=== PATIENT | female | born 1985 | race Caucasian/White ===

== ENCOUNTER → 2016-12-04 | Outpatient (CLI) | payer OTHER ==
--- NOTE | 2016-12-04 09:15 | US ---
EXAMINATION TYPE: US OB <=14 wks transvag DATE OF EXAM: 12/04/2016 8:15 AM COMPARISON: NONE CLINICAL HISTORY: US. Spotting, cramping, 2009 EXAM PERFORMED: Transvaginal (TV) and Transabdominal (TA) EXAM MEASUREMENTS: GESTATIONAL AGE / DATING Physician Established: not established Dates by LMP: (7 weeks/6 days) EDC: 07/17/17 Dates by First Scan: no prior Dates by Current Scan : (8 weeks/1 days) EDC: 07/15/17 MATERNAL ANATOMY Uterus: 10.7 x 6.3 x 7.8cm Right Ovary: 3.5 x 1.3 x 1.6cm Left Ovary: 3.8 x 1.9 x 2.0cm Post CDS / Adnexa: WNL Presence of free fluid: NO Presence of corpus luteal cyst: yes, hypoechoic area left ovary = 1.7 x 2.0 x 1.6cm Presence of subchorionic bleed: yes, inferior to gestational sac = 1.9 x 1.0 x 1.7cm GESTATION / SURVEY CRL: 1.6cm (8 weeks/1 days) Yolk Sac (normal less than 6mm): 0.3cm Heart Rate: 163 bpm Rhythm: Normal IUP: Viable IUP Date of LMP: 10/10/16 IMPRESSION: Single viable IUP 8wks/1day with [place] of 07/15/17. Corpus luteum left ovary. Small subch orionic bleed
== END | disposition home or self-care (01) ==
LOC: RADUSWWP 07:21
PROVIDERS: ATTEND Obstetrics & Gynecology
DX: O20.8 Other hemorrhage in early pregnancy (principal); Z3A.08 8 weeks gestation of pregnancy
CPT/HCPCS: 76801; 76817

== ENCOUNTER → 2017-01-08 | Outpatient (CLI) | payer OTHER ==
[2017-01-08 17:19] LABS: Basophils % (A) 0 %; CHCM 32.4; Eosinophils # (A) 0.1 k/uL (0-0.7); Eosinophils % (A) 1 %; HCT 40.5 % (34.0-46.0); HDW 2.59; HGB 12.9 gm/dL (11.4-16.0); Luc % (Auto) 1; Lymphocytes % (A) 26 %; MCH 28.6 pg (25.0-35.0); MCHC 31.9 g/dL (31.0-37.0); MCV 89.7 fL (80.0-100.0); Mean Platelet Volume 6.9; Monocytes # (A) 0.2 k/uL (0-1.0); Monocytes % (A) 3 %; Neutrophils # (A) 5.1 k/uL (1.3-7.7); Neutrophils % (A) 68 %; RBC 4.52 m/uL (3.80-5.40); WBC 7.5 k/uL (3.8-10.6); WBC (Perox) 8.17
[2017-01-08 18:09] LABS: Hepatitis B Surface Ag Index 0.07
[2017-01-08 18:48] LABS: HCG,Quantitative Serum 67152.7 mIU/mL
[2017-01-09 06:37] LABS: HIV-1/HIV-2 Ab Screen NONREAC (NON REAC)
== END | disposition home or self-care (01) ==
LOC: LABWHC1 16:37
PROVIDERS: ATTEND Obstetrics & Gynecology
DX: Z34.80 Encounter for supervision of other normal pregnancy, unspecified trimester (principal); Z3A.00 Weeks of gestation of pregnancy not specified
CPT/HCPCS: 36415; 81220; 84439; 84443; 84702; 85025; 86762; 86780; 86850; 86900; 86901; 87340; 87389

== ENCOUNTER 2017-03-26 16:59 | Emergency (ER) | payer OTHER ==
[2017-03-26 17:10] VITALS: RESP 20
[2017-03-26] MEDS ORDERED: ACETAMINOPHEN TAB 500 MG TAB PO STA (17:21)
--- NOTE | 2017-03-26 17:24 | ED ---
Fall HPI - General Chief Complaint: Fall Stated Complaint: Fall 24 weeks Time Seen by Provider: 03/26/17 17:15 Source: patient Mode of arrival: wheelchair Limitations: no limitations - History of Present Illness Initial Comments: 31-year-old female presents emergency Department chief complaint fall down 8 steps. Patient states she slipped top step fell down sliding on her back and then fell forward. She did strike her head there was no LOC. Patient has a minimal headache but does complain of neck, back pain and right forearm pain. Patient states that she is approximately 24 weeks denies any abdominal pain denies vaginal bleeding or vaginal discharge. Patient states she was able to ambulate states that she is in extreme pain in her low back. Patient states her [employer] is Dr. Rojas. Patient denies any nausea, vomiting, blurred vision, focal weakness. - Related Data Home Medications Medication Instructions Recorded Confirmed Pediatric Multivit Comb No.144 2 tab PO DAILY 03/26/17 03/26/17 [Children's Chewable Vitamin] Allergies Allergy/AdvReac Type Severity Reaction Status Date / Time No Known Allergies Allergy Verified 03/26/17 17:15 Review of Systems ROS Statement: Those systems with pertinent positive or pertinent negative responses have been documented in the HPI. ROS Other: All systems not noted in ROS Statement are negative. Past Medical History Additional Past Medical History / Comment(s): kidney stones with stent, menorrhagia. History of Any Multi-Drug Resistant Organisms: None Reported Past Surgical History: Section, Tonsillectomy Additional Past Surgical History / Comment(s): 2 weeks ago had ureter stent place at [facility]. Past Anesthesia/Blood Transfusion Reactions: No Reported Reaction Past Psychological History: Anxiety Additional Psychological History / Comment(s): Pt currently lives with her boyfriend. She is independent. Smoking Status: Never smoker Past Alcohol Use History: None Reported Past Drug Use History: None Reported - Past Family History Mother Additional Family Medical History / Comment(s): hypotension, severe anxiety and severe depression, vertigo. CAD runs in mother's family Father Additional Family Medical History / Comment(s): "has a bad heart", back problems. CAD runs in father's family General Exam Limitations: no limitations General appearance: alert, in no apparent distress Head exam: Present: atraumatic, normocephalic, normal inspection Eye exam: Present: normal appearance, PERRL, EOMI. Absent: scleral icterus, conjunctival injection, periorbital swelling ENT exam: Present: normal oropharynx, mucous membranes moist Neck exam: Present: normal inspection, tenderness (Mild tenderness on the right paraspinal no vertebral tenderness. No step-off deformity), full ROM. Absent: meningismus, lymphadenopathy Respiratory exam: Present: normal lung sounds bilaterally. Absent: respiratory distress, wheezes, rales, rhonchi, stridor, chest wall tenderness Cardiovascular Exam: Present: regular rate, normal rhythm, normal heart sounds. Absent: systolic murmur, diastolic murmur, rubs, gallop, clicks GI/Abdominal exam: Present: soft, normal bowel sounds. Absent: distended, tenderness, guarding, rebound, rigid Extremities exam: Present: other (Right forearm there is some ecchymosis noted, small superficial abrasion there is tenderness the right forearm left upper extremity within normal limits, bilateral lower extremities within normal limits ) Back exam: Present: full ROM, tenderness (Tenderness to the lumbar spine, left low back region), paraspinal tenderness, vertebral tenderness Neurological exam: Present: alert, oriented X3, CN II-XII intact, reflexes normal. Absent: motor sensory deficit Skin exam: Present: warm, dry, intact, normal color. Absent: rash Course Vital Signs 03/26/17 17:08 Temperature 97.6 F Pulse Rate 93 Respiratory 20 Rate Blood Pressure 114/59 O2 Sat by Pulse 100 Oximetry Medical Decision Making - Medical Decision Making 31-year-old female presented emergency department for fall. Patient does have low back tenderness, rebound tenderness and neck pain. Patient was offered x- rays and states that she wants x-rays. She understands the risk of radiation with being . Patient also given Tylenol at this time. X-rays show no acute fracture. Patient will be discharged emergency Department sent up to labor and delivery for monitoring. Disposition Clinical Impression: Fall, Back pain, Neck pain, Contusion of right forearm Disposition: HOME SELF-CARE Condition: Stable Instructions: Contusion in Adults (ED) Additional Instructions: Please return to the Emergency Department if symptoms worsen or any other concerns. Time of Disposition: 18:27
--- NOTE | 2017-03-26 18:22 | XR ---
EXAMINATION TYPE: XR cervical spine comp DATE OF EXAM: 03/26/2017 5:44 PM COMPARISON: NONE HISTORY: Pain after trauma TECHNIQUE: 5 views FINDINGS: The bones and joints and soft tissues are unremarkable for acute findings. IMPRESSION: Negative for fracture or malalignment.
--- NOTE | 2017-03-26 18:24 | XR ---
EXAMINATION TYPE: XR forearm RT DATE OF EXAM: 03/26/2017 5:44 PM COMPARISON: NONE HISTORY: Pain after trauma TECHNIQUE: 2 views FINDINGS: The bones and joints and soft tissues are unremarkable. Imaging obtained from the elbow to the wrist. IMPRESSION: No acute process.
--- NOTE | 2017-03-26 18:25 | XR ---
EXAMINATION TYPE: XR lumbar spine 2 or 3V DATE OF EXAM: 03/26/2017 5:44 PM COMPARISON: NONE HISTORY: Pain after trauma. Gravid state. TECHNIQUE: AP and lateral views FINDINGS: Negative for fracture or malalignment. IMPRESSION: No acute process.
[2017-03-26 18:41] VITALS: BP 123/69; PULSE 78; TEMP 98
== END 2017-03-26 18:41 | disposition home or self-care (01) ==
LOC: EC 16:59
DX: O9A.212 Injury, poisoning and certain other consequences of external causes complicating pregnancy, second trimester (principal); S50.11XA Contusion of right forearm, initial encounter; M54.2 Cervicalgia; M54.5 Low back pain; R51 Headache; Z79.899 Other long term (current) drug therapy; Z3A.24 24 weeks gestation of pregnancy; W10.9XXA Fall (on) (from) unspecified stairs and steps, initial encounter
CPT/HCPCS: 72050; 72100; 99283

== ENCOUNTER → 2017-05-16 | Outpatient (CLI) | payer OTHER ==
--- NOTE | 2017-05-16 17:21 | US ---
EXAMINATION TYPE: US OB >= 14 wk fetus DATE OF EXAM: 05/16/2017 COMPARISON: US CLINICAL HISTORY: O09.212 Placenta LocationPlacenta location TECHNIQUE: Transabdominal (TA) GESTATIONAL AGE / DATING Physician Established: (30 weeks/5 days) EDC: 07/20/2017 Dates by LMP: (31 weeks/1 days) EDC: 07/17/2017 Dates by First Scan: (31 weeks/3 days) EDC: 07/15/2017 Dates by Current Scan: (29 weeks/4 days) EDC: 07/28/2017 SURVEY IUP: Single PLACENTA: Anterior, 1.9cm hypoechoic non vascular area within lower portion of placenta PREVIA: No Previa SHREYAS: 11.5 cm Normal CERVICAL LENGTH (transabdominal: norm > 3.0cm): 3.7 cm BIOMETRY PRESENTATION: Vertex BPD: 7.2 cm 28 weeks / 5 days HC: 26.9 cm 29 weeks / 2 days AC: 26.1 cm 30 weeks / 2 days FL: 5.9 cm 30 weeks / 5 days ESTIMATED WEIGHT IN GRAMS: 1524 grams ESTIMATED WEIGHT IN LBS/OZS: 3 lbs. 6 oz. WEIGHT PERCENTAGE BASED ON ESTABLISHED DATES: 21% HC/AC: 1.03 Normal FL/AC: 22.60 Normal HEART RATE: 132 bpm RHYTHM: Normal Viable single IUP measuring 29 weeks 4 days with a heart rate of 132bpm and an estimated delivery irina e of 07/28/2017, placenta: no previa, 1.9cm hypoechoic non vascular area within lower portion of plac enta IMPRESSION: PLACENTA IS LOCATED ANTERIORLY WITHOUT EVIDENCE OF PLACENTA PREVIA. LESION IN THE LOWER PORTION OF TH E PLACENTA MAY REPRESENT A THROMBOSED VENOUS MADDEN OR VERY SLOW FLOWING BLOOD IS INTRAVENOUSLY.
== END | disposition home or self-care (01) ==
LOC: RADUSWWP 15:35
PROVIDERS: ATTEND Obstetrics & Gynecology
DX: O09.213 Supervision of pregnancy with history of pre-term labor, third trimester (principal); O36.5130 Maternal care for known or suspected placental insufficiency, third trimester, not applicable or unspecified; Z3A.30 30 weeks gestation of pregnancy
CPT/HCPCS: 76805

== ENCOUNTER 2017-05-28 13:11 | Outpatient (CLI) | payer OTHER ==
[2017-05-28 14:20] VITALS: BP 110/71; PULSE 80; RESP 14; TEMP 97.7
--- NOTE | 2017-06-01 12:23 | P.MSEPDOC ---
Presenting Problems - Arrival Data Date of Arrival on Unit: 05/28/17 Time of Arrival on Unit: 13:11 Mode of Transport: Ambulatory - Complaint OB-Reason for Admission/Chief Complaint: Decreased Movement Medical History - Information : 6 Para: 2 Term: 0 : 2 Abortions: Spontaneous or Elective: 0 Number of Living Children: 2 - Gestational Age Expected Date of Delivery: 07/20/17 Gestational Age by PHOENIX (wks/days): 33 Weeks and 0 Days - History Complications: Prior , Prior Review of Systems - Review of Systems Constitutional: No problems Breast: No problems ENT: No problems Cardiovascular: No problems Respiratory: No problems Gastrointestinal: No problems Genitourinary: No problems Musculoskeletal: No problems Neurological: No problems Skin: No problems Vital Signs - Temperature Temperature: 97.7 F Temperature Source: Oral - Pulse Right Brachial Pulse Rate: 80 Pulse Assessment Method: Automatic Cuff - Respirations Respiratory Rate: 14 Oxygen Delivery Method: Room Air - Blood Pressure Right Arm Blood Pressure: 110/71 Blood Pressure Mean: 84 Blood Pressure Source: Automatic Cuff Medical Screen Scoring (Pre) - Cervical Exam Dilation: Exam Deferred Effacement: Exam Deferred - Uterine Contractions Frequency: N/A Duration: N/A Intensity: N/A - Maternal Vital Signs Maternal Temperature: N/A Maternal Blood Pressure: N/A Signs of Preeclampsia: N/A Maternal Respirations: N/A - Maternal Trauma Maternal Trauma: N/A - Assessment Baseline FHR: 135 Heart Rate - NICHD Category: Category I (Normal) = 0 - Total Score Total Score (Pre): 0 - Level of Risk Level of Risk: Low (0-5) Physician Notification (Pre) - Physician Notified Physician Notified Date: 05/28/17 Physician Notified Time: 13:59 Physician/Practitioner Notifed:: tom Spoke With: tom New Order Received: Yes - Notification Comment Comment: discharge home, follow up with dr avery at next scheduled appointment Disposition - Disposition Discharge Date: 05/28/17 Discharge Time: 14:12 I agree with the RN Medical Screening Exam: Yes Risk & Benefit of care provided described in d/c instruction: Yes Diagnosis: DECREASED MOVEMENTS, THIRD TRIMESTER, FETUS 1
== END 2017-05-28 14:12 | disposition home or self-care (01) ==
LOC: FBPOP 13:11
PROVIDERS: ATTEND Obstetrics & Gynecology
DX: O36.8130 Decreased fetal movements, third trimester, not applicable or unspecified (principal); Z3A.33 33 weeks gestation of pregnancy
CPT/HCPCS: 59025; G0463; 99213

== ENCOUNTER 2017-09-10 19:53 | Emergency (ER) | payer OTHER ==
[2017-09-10 20:01] VITALS: TEMP 98.2
[2017-09-10] MEDS ORDERED: ONDANSETRON 4 MG/2 ML VIAL IVP STA (20:18)
[2017-09-10] MEDS ORDERED: MORPHINE SULFATE 2 MG/ML SYRINGE IVP PRN (20:18)
[2017-09-10] MEDS ORDERED: KETOROLAC 30 MG/ML 1 ML VIAL IVP STA (20:18)
[2017-09-10] MEDS ORDERED: SODIUM CHLORIDE 0.9% 500 ML IV STA (20:19)
[2017-09-10 21:34] LABS: Appearance,Urine Bloody (Clear); Bacteria,Urine Rare /hpf; Mucus,Urine Many /hpf; Particle Count 19580; RBC,Urine >182 /hpf (0-5); UA Billing (MACRO vs. MICRO) MICRO; WBC,Urine 115 /hpf (0-5)
--- NOTE | 2017-09-10 22:04 | US ---
EXAMINATION TYPE: US transvaginal DATE OF EXAM: 09/10/2017 COMPARISON: NONE CLINICAL HISTORY: Pain. Heavy bleeding TECHNIQUE: Transvaginal (TV) Date of LMP: 09/09/2017 EXAM MEASUREMENTS: Uterus: 8.1 x 4.3 x 1.5 cm Endometrial Stripe: 1.1 cm Right Ovary: 2.9 x 1.7 x 1.8 cm Left Ovary: 2.7 x 1.1 x 1.2 cm 1. Uterus: Anteverted. The myometrium is diffusely heterogenous in echotexture, consistent with leio myomatous change. Hypoechoic area right uterus noted, measuring 2.2 x 1.8 x 2.4 cm, consistent with myometrial leiomyoma. 2. Endometrium: wnl 3. Right Ovary: wnl 4. Left Ovary: wnl Spectral, color and waveform doppler imaging shows good arterial and venous flow within the ovaries ; there is no evidence for ovarian torsion. 5. Bilateral Adnexa: wnl 6. Posterior cul-de-sac: wnl IMPRESSION: NO ACUTE PROCESS.
[2017-09-10] MEDS ORDERED: LORazepam 2 MG/ML INJ IV STA (22:22)
[2017-09-10 22:57] VITALS: BP 133/80; PULSE 68; RESP 16
[2017-09-10 23:00] LABS: Basophils % (A) 0 %; CH 25.1; CHCM 30.4; Eosinophils % (A) 1 %; HCT 35.8 % (34.0-46.0); HDW 2.92; HGB 10.9 gm/dL (11.4-16.0); Hypochromasia Marked; Luc # (Auto) 0.13; Luc % (Auto) 2; Lymphocytes # (A) 1.8 k/uL (1.0-4.8); Lymphocytes % (A) 32 %; MCH 25.3 pg (25.0-35.0); MCHC 30.5 g/dL (31.0-37.0); MCV 82.8 fL (80.0-100.0); Mean Platelet Volume 6.4; Monocytes # (A) 0.2 k/uL (0-1.0); Monocytes % (A) 4 %; Neutrophils # (A) 3.4 k/uL (1.3-7.7); Neutrophils % (A) 61 %; RBC 4.32 m/uL (3.80-5.40); RDW 15.4 % (11.5-15.5); WBC 5.7 k/uL (3.8-10.6); WBC (Perox) 5.92
[2017-09-10 23:14] LABS: ALT 59 U/L (9-52); AST 37 U/L (14-36); Alkaline Phosphatase 73 U/L (38-126); Amylase 39 U/L (30-110); Anion Gap 11 mmol/L; Blood Urea Nitrogen 8 mg/dL (7-17); Calcium 9.2 mg/dL (8.4-10.2); Carbon Dioxide 19 mmol/L (22-30); Chloride 110 mmol/L (98-107); Glucose 81 mg/dL (74-99); Non-African American GFR(MDRD) >60 (>60 ml/min/1.73 sqM); Sodium 140 mmol/L (137-145); Total Bilirubin 0.2 mg/dL (0.2-1.3); Total Protein 7.8 g/dL (6.3-8.2)
--- NOTE | 2017-09-10 23:36 | ED ---
Female Urogenital HPI - General Chief complaint: Vaginal Bleeding Stated complaint: Vaginal bleeding Time Seen by Provider: 09/10/17 20:07 Source: patient Mode of arrival: ambulatory Limitations: no limitations - History of Present Illness Initial comments: 32-year-old female patient presents to emergency department today for evaluation of heavy menstrual bleeding and pelvic cramping. Patient states that she started her period yesterday. States that she has been changing her super tampon every couple of hours. States that her cramping has been much worse than usual today. She states that the pain is in her lower abdomen and her back. She states it is greater than a 10 out of 10 on a pain scale. Patient states that she has previously had bleeding and pain similar to this but when she had ovarian cyst or a tubal . Patient states that she has had a tubal ligation. Previous history of . Patient states she also says history of endometriosis. Patient denies any recent rash, fever, chills, shortness breath, chest pain, nausea, vomiting, diarrhea, constipation, back pain, numbness, tingling, dizziness, weakness, hematuria, dysuria, urinary urgency, urinary frequency, headache, visual changes, or any other complaints. Last Menstrual Period: 08/08/17 - Related Data Previous Rx's Medication Instructions Recorded Hydrocodone/Acetaminophen [[place] 1 tab PO Q6HR PRN #15 tab 09/10/17 5-325] Allergies Allergy/AdvReac Type Severity Reaction Status Date / Time No Known Allergies Allergy Verified 09/10/17 20:04 Review of Systems ROS Statement: Those systems with pertinent positive or pertinent negative responses have been documented in the HPI. ROS Other: All systems not noted in ROS Statement are negative. Past Medical History Additional Past Medical History / Comment(s): kidney stones with stent, menorrhagia. History of Any Multi-Drug Resistant Organisms: None Reported Past Surgical History: Section, Tonsillectomy, Tubal Ligation Additional Past Surgical History / Comment(s): 2 weeks ago had ureter stent place at [facility]. Past Anesthesia/Blood Transfusion Reactions: No Reported Reaction Past Psychological History: Anxiety Smoking Status: Never smoker Past Alcohol Use History: None Reported Past Drug Use History: None Reported - Past Family History Mother Additional Family Medical History / Comment(s): hypotension, severe anxiety and severe depression, vertigo. CAD runs in mother's family Father Additional Family Medical History / Comment(s): "has a bad heart", back problems. CAD runs in father's family General Exam Limitations: no limitations General appearance: alert, in no apparent distress, other (This is a well- developed, well-nourished adult female patient in no acute distress. Vital signs upon presentation are temperature 98.2F, pulse 105, respirations 20, blood pressure 120/82, pulse ox 98% on room air.) Respiratory exam: Present: normal lung sounds bilaterally. Absent: respiratory distress, wheezes, rales, rhonchi, stridor Cardiovascular Exam: Present: regular rate, normal rhythm, normal heart sounds. Absent: systolic murmur, diastolic murmur, rubs, gallop, clicks GI/Abdominal exam: Present: soft, tenderness (Suprapubic tenderness), normal bowel sounds. Absent: distended, guarding, rebound, rigid Back exam: Present: normal inspection. Absent: CVA tenderness (R), CVA tenderness (L) Neurological exam: Present: alert, oriented X3, CN II-XII intact Psychiatric exam: Present: normal affect, normal mood Skin exam: Present: warm, dry, intact, normal color. Absent: rash Course Vital Signs 09/10/17 09/10/17 19:59 22:55 Temperature 98.2 F Pulse Rate 105 H 68 Respiratory 20 16 Rate Blood Pressure 120/82 133/80 O2 Sat by Pulse 98 100 Oximetry Medical Decision Making - Medical Decision Making 32-year-old female patient presents to emergency department today for evaluation of heavy menstrual bleeding and increased abdominal cramping. Patient is currently on her period. Physical exam did reveal some superpubic tenderness. Ultrasound was performed and did show a uterine leiomyoma, consistent with uterine fibroid. Patient will be discharged home with instructions to increase her fluid intake. She is instructed to follow-up with [facility]T TENDER as soon as possible. She'll be given stronger pain medication. She is instructed to return here immediately for any new, worsening, or concerning symptoms. She verbalizes understanding and agrees with this plan. - Lab Data Result diagrams: 09/10/17 22:39 09/10/17 22:39 Lab Results 09/10/17 09/10/17 09/10/17 Range/Units 21:26 22:39 22:39 WBC 5.7 (3.8-10.6) k/uL RBC 4.32 (3.80-5.40) m/uL Hgb 10.9 L (11.4-16.0) gm/dL Hct 35.8 (34.0-46.0) % MCV 82.8 (80.0-100.0) fL MCH 25.3 (25.0-35.0) pg MCHC 30.5 L (31.0-37.0) g/dL RDW 15.4 (11.5-15.5) % Plt Count 242 (150-450) k/uL Neutrophils % 61 % Lymphocytes % 32 % Monocytes % 4 % Eosinophils % 1 % Basophils % 0 % Neutrophils # 3.4 (1.3-7.7) k/uL Lymphocytes # 1.8 (1.0-4.8) k/uL Monocytes # 0.2 (0-1.0) k/uL Eosinophils # 0.0 (0-0.7) k/uL Basophils # 0.0 (0-0.2) k/uL Hypochromasia Marked Sodium 140 (137-145) mmol/L Potassium 4.0 (3.5-5.1) mmol/L Chloride 110 H (98-107) mmol/L Carbon Dioxide 19 L (22-30) mmol/L Anion Gap 11 mmol/L BUN 8 (7-17) mg/dL Creatinine 0.61 (0.52-1.04) mg/dL Est GFR (MDRD) Af Amer >60 (>60 ml/min/1.73 sqM) Est GFR (MDRD) Non-Af >60 (>60 ml/min/1.73 sqM) Glucose 81 (74-99) mg/dL Calcium 9.2 (8.4-10.2) mg/dL Total Bilirubin 0.2 (0.2-1.3) mg/dL AST 37 H (14-36) U/L ALT 59 H (9-52) U/L Alkaline Phosphatase 73 (38-126) U/L Total Protein 7.8 (6.3-8.2) g/dL Albumin 4.1 (3.5-5.0) g/dL Amylase 39 (30-110) U/L Lipase 69 (23-300) U/L Urine Color Red Urine Appearance Bloody H (Clear) Urine RBC >182 H (0-5) /hpf Urine WBC 115 H (0-5) /hpf Urine Bacteria Rare H (None) /hpf Urine Mucus Many H (None) /hpf - Radiology Data Radiology results: report reviewed, image reviewed Transvaginal ultrasound performed shows that the uterus is anteverted. The myometrium is diffusely heterogenous and echo texture, consistent with leiomyomatous change. Hypoechoic area right uterus noted, measuring 2.2 x 1.8 x 2.4 cm consistent with myometrial leiomyoma. Rest of the report read in its entirety. Impression by Dr. Parisi. Disposition Clinical Impression: Dysmenorrhea, Leiomyoma Disposition: HOME SELF-CARE Condition: Good Instructions: Dysmenorrhea (ED), Uterine Fibroids (ED) Additional Instructions: Increase fluids. Follow up with your BELT TENDER for further evaluation. Return here immediately for any new, worsening, or concerning symptoms. Prescriptions: Hydrocodone/Acetaminophen [[place] 5-325] 1 tab PO Q6HR PRN #15 tab PRN Reason: Pain Referrals: None,Stated [Primary Care Provider] - 1-2 days Time of Disposition: 23:35
== END 2017-09-10 23:53 | disposition home or self-care (01) ==
LOC: EC 19:53
DX: N94.6 Dysmenorrhea, unspecified (principal); D25.9 Leiomyoma of uterus, unspecified
CPT/HCPCS: 99284 ×2; 96374 ×2; 96375 ×4; 96361 ×3; 36415; 80053; 82150; 83690; 85025; 81001; 93975; 76830; J2060; J2405; J1885; J2270

== ENCOUNTER 2018-06-24 10:53 | Emergency (ER) | payer OTHER ==
[2018-06-24 11:01] VITALS: TEMP 98.7
[2018-06-24] MEDS ORDERED: MORPHINE SULFATE 4 MG/ML SYRINGE IV STA (11:22)
[2018-06-24] MEDS ORDERED: ONDANSETRON 4 MG/2 ML VIAL IVP STA (11:22)
[2018-06-24] MEDS ORDERED: SODIUM CHLORIDE 0.9% 1,000 ML IV STA (11:22)
--- NOTE | 2018-06-24 11:24 | ED ---
General Adult HPI - General Chief complaint: Abdominal Pain Stated complaint: abd pain Time Seen by Provider: 06/24/18 11:16 Source: patient, RN notes reviewed Mode of arrival: ambulatory Limitations: no limitations - History of Present Illness Initial comments: Patient 33-year-old male presented to the emergency room today with chief complaint of right-sided abdominal pain. Patient does admit that she's had similar pain in the past once with an ovarian cyst. Patient states that the pain has been constant she states it is sharp. Currently rates it a 10/10. Admits some radiation around to the right side of the back. Patient does admit to some vaginal bleeding that started yesterday. States is not normal menstrual cycle for her at this time. Patient states she's had some spotting today has no other complaints. Patient denies any recent fever, chills, shortness of breath, chest pain, numbness or tingling, dysuria or hematuria, constipation or diarrhea, headaches or visual changes, or any other complaints. - Related Data Home Medications Medication Instructions Recorded Confirmed [id number] [id number] 1 tab PO Q4HR PRN 06/24/18 06/24/18 [Excedrin] Vitamin C/Biotin [Hair, Skin and 1 tab PO DAILY 06/24/18 06/24/18 Nails] Previous Rx's Medication Instructions Recorded Ibuprofen [Motrin] 600 mg PO Q6HR PRN #40 day 06/24/18 Allergies Allergy/AdvReac Type Severity Reaction Status Date / Time No Known Allergies Allergy Verified 06/24/18 11:52 Review of Systems ROS Statement: Those systems with pertinent positive or pertinent negative responses have been documented in the HPI. ROS Other: All systems not noted in ROS Statement are negative. Past Medical History Additional Past Medical History / Comment(s): kidney stones with stent, menorrhagia. History of Any Multi-Drug Resistant Organisms: None Reported Past Surgical History: Section, Tonsillectomy, Tubal Ligation Additional Past Surgical History / Comment(s): 2 weeks ago had ureter stent place at [facility]. Past Anesthesia/Blood Transfusion Reactions: No Reported Reaction Past Psychological History: Anxiety Smoking Status: Never smoker Past Alcohol Use History: None Reported Past Drug Use History: None Reported - Past Family History Mother Additional Family Medical History / Comment(s): hypotension, severe anxiety and severe depression, vertigo. CAD runs in mother's family Father Additional Family Medical History / Comment(s): "has a bad heart", back problems. CAD runs in father's family General Exam - General Exam Comments Initial Comments: General: The patient is awake and alert, in no distress, and does not appear acutely ill. Eye: Pupils are equal, round and reactive to light, extra-ocular movements are intact. No nystagmus. There is normal conjunctiva bilaterally. No signs of icterus. Ears, nose, mouth and throat: There are moist mucous membranes and no oral lesions. Neck: The neck is supple, there is no tenderness or JVD. Cardiovascular: There is a regular rate and rhythm. No murmur, rub or gallop is appreciated. Respiratory: Lungs are clear to auscultation, respirations are non-labored, breath sounds are equal. No wheezes, stridor, rales, or rhonchi. Gastrointestinal: Admits PALPATION. Patient does have tenderness right lower quadrant. No rebound, guarding, CVA tenderness. Musculoskeletal: Normal ROM, no tenderness. Strength 5/5. Sensation intact. Pulses equal bilaterally 2+. Neurological: A&O x 3. CN II-XII intact, There are no obvious motor or sensory deficits. Coordination appears grossly intact. Speech is normal. Skin: Skin is warm and dry and no rashes or lesions are noted. Psychiatric: Cooperative, appropriate mood & affect, normal judgment. Limitations: no limitations Course Vital Signs 06/24/18 06/24/18 11:00 11:59 Temperature 98.7 F Pulse Rate 99 64 Respiratory 18 18 Rate Blood Pressure 108/72 128/73 O2 Sat by Pulse 97 100 Oximetry Medical Decision Making - Medical Decision Making Patient's ultrasound of the right lower quadrant shows no evidence for inflammation. Patient's transvaginal ultrasound shows complex lesion within the right ovary measuring 1.7 cm. Related to hemorrhagic cyst. Results were discussed with the patient. test are negative. Patient does have history of seizures. She has seen Dr. Rojas in the past. Advised following up over the next 2-5 days. Advised Tylenol/ibuprofen for pain. Advised returning if any symptoms increase or worsen. - Lab Data Result diagrams: 06/24/18 11:53 06/24/18 11:53 Lab Results 06/24/18 06/24/18 06/24/18 Range/Units 11:53 11:53 11:53 WBC (3.8-10.6) k/uL RBC (3.80-5.40) m/uL Hgb (11.4-16.0) gm/dL Hct (34.0-46.0) % MCV (80.0-100.0) fL MCH (25.0-35.0) pg MCHC (31.0-37.0) g/dL RDW (11.5-15.5) % Plt Count (150-450) k/uL Neutrophils % % Lymphocytes % % Monocytes % % Eosinophils % % Basophils % % Neutrophils # (1.3-7.7) k/uL Lymphocytes # (1.0-4.8) k/uL Monocytes # (0-1.0) k/uL Eosinophils # (0-0.7) k/uL Basophils # (0-0.2) k/uL Hypochromasia Anisocytosis Sodium 139 (137-145) mmol/L Potassium 4.5 (3.5-5.1) mmol/L Chloride 112 H (98-107) mmol/L Carbon Dioxide 17 L (22-30) mmol/L Anion Gap 10 mmol/L BUN 14 (7-17) mg/dL Creatinine 0.69 (0.52-1.04) mg/dL Est GFR (CKD-EPI)AfAm >90 (>60 ml/min/1.73 sqM) Est GFR (CKD-EPI)NonAf >90 (>60 ml/min/1.73 sqM) Glucose 80 (74-99) mg/dL Calcium 8.8 (8.4-10.2) mg/dL Total Bilirubin 0.3 (0.2-1.3) mg/dL AST 44 H (14-36) U/L ALT 37 (9-52) U/L Alkaline Phosphatase 72 (38-126) U/L Total Protein 7.5 (6.3-8.2) g/dL Albumin 4.2 (3.5-5.0) g/dL Amylase 86 (30-110) U/L Lipase 86 (23-300) U/L HCG, Quant mIU/mL Urine Color Light Yellow Urine Appearance Clear (Clear) Urine pH 6.0 (5.0-8.0) Ur Specific [place] 1.016 (1.001-1.035) Urine Protein Negative (Negative) Urine Glucose (UA) Negative (Negative) Urine Ketones Negative (Negative) Urine Blood Trace H (Negative) Urine Nitrite Negative (Negative) Urine Bilirubin Negative (Negative) Urine Urobilinogen <2.0 (<2.0) mg/dL Ur Leukocyte Esterase Negative (Negative) Urine RBC <1 (0-5) /hpf Urine WBC 2 (0-5) /hpf Ur Squamous Epith Cells 1 (0-4) /hpf Urine HCG, Qual Not Detected (Not Detectd) 06/24/18 06/24/18 Range/Units 11:53 11:53 WBC 8.2 (3.8-10.6) k/uL RBC 4.49 (3.80-5.40) m/uL Hgb 11.3 L (11.4-16.0) gm/dL Hct 37.6 (34.0-46.0) % MCV 83.7 (80.0-100.0) fL MCH 25.3 (25.0-35.0) pg MCHC 30.2 L (31.0-37.0) g/dL RDW 16.0 H (11.5-15.5) % Plt Count 237 (150-450) k/uL Neutrophils % 75 % Lymphocytes % 19 % Monocytes % 3 % Eosinophils % 2 % Basophils % 0 % Neutrophils # 6.1 (1.3-7.7) k/uL Lymphocytes # 1.6 (1.0-4.8) k/uL Monocytes # 0.3 (0-1.0) k/uL Eosinophils # 0.2 (0-0.7) k/uL Basophils # 0.0 (0-0.2) k/uL Hypochromasia Slight Anisocytosis Slight Sodium (137-145) mmol/L Potassium (3.5-5.1) mmol/L Chloride (98-107) mmol/L Carbon Dioxide (22-30) mmol/L Anion Gap mmol/L BUN (7-17) mg/dL Creatinine (0.52-1.04) mg/dL Est GFR (CKD-EPI)AfAm (>60 ml/min/1.73 sqM) Est GFR (CKD-EPI)NonAf (>60 ml/min/1.73 sqM) Glucose (74-99) mg/dL Calcium (8.4-10.2) mg/dL Total Bilirubin (0.2-1.3) mg/dL AST (14-36) U/L ALT (9-52) U/L Alkaline Phosphatase (38-126) U/L Total Protein (6.3-8.2) g/dL Albumin (3.5-5.0) g/dL Amylase (30-110) U/L Lipase (23-300) U/L HCG, Quant <2.4 mIU/mL Urine Color Urine Appearance (Clear) Urine pH (5.0-8.0) Ur Specific [place] (1.001-1.035) Urine Protein (Negative) Urine Glucose (UA) (Negative) Urine Ketones (Negative) Urine Blood (Negative) Urine Nitrite (Negative) Urine Bilirubin (Negative) Urine Urobilinogen (<2.0) mg/dL Ur Leukocyte Esterase (Negative) Urine RBC (0-5) /hpf Urine WBC (0-5) /hpf Ur Squamous Epith Cells (0-4) /hpf Urine HCG, Qual (Not Detectd) Disposition Clinical Impression: Ovarian cyst Disposition: HOME SELF-CARE Condition: Good Instructions: Ovarian Cyst (ED) Additional Instructions: Please use medication as discussed. Please follow-up with [employer]/family doctor in the next 25 days of symptoms have not improved. Please return to emergency room if the symptoms increase or worsen or for any other concerns. Prescriptions: Ibuprofen [Motrin] 600 mg PO Q6HR PRN #40 day PRN Reason: Pain Is patient prescribed a controlled substance at d/c from ED?: No Referrals: None,Stated [Primary Care Provider] - 1-2 days Jonathan Rojas DO [REFERRING] - 1-2 days Time of Disposition: 14:25
[2018-06-24 12:08] LABS: Anisocytosis Slight; Basophils % (A) 0 %; Eosinophils # (A) 0.2 k/uL (0-0.7); Eosinophils % (A) 2 %; HCT 37.6 % (34.0-46.0); HGB 11.3 gm/dL (11.4-16.0); Hypochromasia Slight; Lymphocytes # (A) 1.6 k/uL (1.0-4.8); Lymphocytes % (A) 19 %; MCH 25.3 pg (25.0-35.0); MCHC 30.2 g/dL (31.0-37.0); MCV 83.7 fL (80.0-100.0); Mean Platelet Volume 6.9; Monocytes # (A) 0.3 k/uL (0-1.0); Monocytes % (A) 3 %; Neutrophils # (A) 6.1 k/uL (1.3-7.7); Neutrophils % (A) 75 %; Platelet Count 237 k/uL (150-450); RBC 4.49 m/uL (3.80-5.40); WBC 8.2 k/uL (3.8-10.6)
[2018-06-24 12:25] LABS: ALT 37 U/L (9-52); AST 44 U/L (14-36); Albumin 4.2 g/dL (3.5-5.0); Alkaline Phosphatase 72 U/L (38-126); Amylase 86 U/L (30-110); Anion Gap 10 mmol/L; Blood Urea Nitrogen 14 mg/dL (7-17); Calcium 8.8 mg/dL (8.4-10.2); Carbon Dioxide 17 mmol/L (22-30); Chloride 112 mmol/L (98-107); Glucose 80 mg/dL (74-99); Lipase 86 U/L (23-300); Potassium 4.5 mmol/L (3.5-5.1); Sodium 139 mmol/L (137-145); Total Bilirubin 0.3 mg/dL (0.2-1.3); Total Protein 7.5 g/dL (6.3-8.2)
[2018-06-24 12:26] LABS: Appearance,Urine Clear (Clear); Bilirubin,Urine Negative (Negative); Blood,Urine Trace (Negative); Color,Urine Light Yellow; Glucose,Urine (UA) Negative (Negative); Ketones,Urine Negative (Negative); Leukocyte Esterase,Urine Negative (Negative); Nitrite,Urine Negative (Negative); Protein,Urine Negative (Negative); RBC,Urine <1 /hpf (0-5); Specific Gravity,Urine 1.016 (1.001-1.035); Squamous Epithelial Cell,Urine 1 /hpf (0-4); Urobilinogen,Urine <2.0 mg/dL (<2.0); WBC,Urine 2 /hpf (0-5)
--- NOTE | 2018-06-24 12:58 | US ---
EXAMINATION TYPE: US abdomen APPY DATE OF EXAM: 06/24/2018 COMPARISON: NONE CLINICAL HISTORY: Pain. RLQ pain, no fever APPENDIX AP Diameter (normal < 6mm): Not visualized Is the appendix seen in its entirety from the proximal cecum to distal end: Not visualized Is there inflammatory changes or free fluid present: No free fluid seen in the RLQ IMPRESSION: Appendix is not seen sonographically, however there are no secondary signs of acute appe ndicitis.
--- NOTE | 2018-06-24 13:00 | US ---
EXAMINATION TYPE: US transvaginal DATE OF EXAM: 06/24/2018 COMPARISON: None CLINICAL HISTORY: pain. RLQ pain, no surgeries. TECHNIQUE: Transvaginal (TV). Date of LMP: 06/01/2018, EXAM MEASUREMENTS: Uterus: 8.1 x 5.9 x 5.7 cm Endometrial Stripe: 0.9 cm Right Ovary: 3.9 x 2.5 x 2.4 cm Left Ovary: 2.7 x 1.5 x 1.8 cm 1. Uterus: Retroverted Heterogenous. No fibroid seen. 2. Endometrium: wnl 3. Right Ovary: Complex lesion with peripheral vascular flow - 1.7 x 1.5 x 1.6 cm 4. Left Ovary: follicles seen Spectral, color and waveform doppler imaging shows good arterial and venous flow within the ovaries ; there is no evidence for ovarian torsion. 5. Bilateral Adnexa: wnl 6. Posterior cul-de-sac: Trace amount of fluid, likely physiologic or related to recent ruptured cys t. Cervix- nabothian cysts IMPRESSION: Complex lesion within the right ovary measuring 1.7 cm. This could relate to a hemorrhagi c cyst, however this could alternatively relate to a corpus luteal cyst of early or less li praneeth ectopic . Correlation with serum beta hCG is recommended.
[2018-06-24] MEDS ORDERED: KETOROLAC 30 MG/ML 1 ML VIAL IVP STA (14:24)
[2018-06-24] MEDS ORDERED: MORPHINE SULFATE 2 MG/ML SYRINGE IVP STA ×2 (15:11→15:12)
[2018-06-24 15:20] VITALS: BP 124/78; PULSE 55; RESP 16
== END 2018-06-24 15:18 | disposition home or self-care (01) ==
LOC: EC 10:53
DX: N83.201 Unspecified ovarian cyst, right side (principal); Z87.442 Personal history of urinary calculi; Z98.51 Tubal ligation status; Z87.42 Personal history of other diseases of the female genital tract; Z96.0 Presence of urogenital implants
CPT/HCPCS: 36415; 80053; 82150; 83690; 85025; 81001; 81025; 84702; 87086; 93975; 76705; 76830; 99284; 96374; 96375 ×2; 96376; 96361 ×3; J2270 ×2; J2405; J1885

== ENCOUNTER 2018-12-06 19:02 | Emergency (ER) | payer OTHER ==
[2018-12-06 19:15] VITALS: TEMP 98.2
[2018-12-06] MEDS ORDERED: SODIUM CHLORIDE 0.9% 1,000 ML IV STA (19:26)
[2018-12-06] MEDS ORDERED: MORPHINE SULFATE 4 MG/ML SYRINGE IV STA (19:26)
[2018-12-06] MEDS ORDERED: KETOROLAC 30 MG/ML 1 ML VIAL IVP STA (19:26)
[2018-12-06] MEDS ORDERED: ONDANSETRON 4 MG/2 ML VIAL IVP STA (19:26)
--- NOTE | 2018-12-06 19:27 | ED ---
Abdominal Pain HPI - General Chief Complaint: Abdominal Pain Stated Complaint: ABDOMINAL PAIN Source: patient Mode of arrival: ambulatory Limitations: no limitations - History of Present Illness Initial Comments: This is a 33-year-old female the ER for evasive Doppler pain, epigastric right upper quadrant diffuse and therapeutic abdominal pain. Patient states she has history of ovarian cysts history of tubal ligation, mild nausea no vomiting no fevers. No travel she no sick contacts no diarrhea. He didn't have been a half -hour after eating dinner paddy LEIGH Complaint: abdominal pain, flank pain (Right) -: hour(s) Location: RUQ, suprapubic Radiation: RUQ, suprapubic Migration to: RUQ, suprapubic Severity: mild Severity scale (1-10): 2 Quality: aching Consistency: constant Improves With: nothing Worsens With: nothing Associated Symptoms: nausea - Related Data Home Medications Medication Instructions Recorded Confirmed No Known Home Medications 12/06/18 12/06/18 Allergies Allergy/AdvReac Type Severity Reaction Status Date / Time No Known Allergies Allergy Verified 12/06/18 20:04 Review of Systems ROS Statement: Those systems with pertinent positive or pertinent negative responses have been documented in the HPI. ROS Other: All systems not noted in ROS Statement are negative. Past Medical History Additional Past Medical History / Comment(s): kidney stones with stent, menorrhagia. History of Any Multi-Drug Resistant Organisms: None Reported Past Surgical History: Section, Tonsillectomy, Tubal Ligation Additional Past Surgical History / Comment(s): 2 weeks ago had ureter stent place at [facility]. Past Anesthesia/Blood Transfusion Reactions: No Reported Reaction Past Psychological History: Anxiety Smoking Status: Never smoker Past Alcohol Use History: None Reported Past Drug Use History: None Reported - Past Family History Mother Additional Family Medical History / Comment(s): hypotension, severe anxiety and severe depression, vertigo. CAD runs in mother's family Father Additional Family Medical History / Comment(s): "has a bad heart", back problems. CAD runs in father's family General Exam Limitations: no limitations General appearance: alert, in no apparent distress Head exam: Present: atraumatic, normocephalic, normal inspection Eye exam: Present: normal appearance, PERRL, EOMI. Absent: scleral icterus, conjunctival injection, periorbital swelling ENT exam: Present: normal exam, mucous membranes moist Neck exam: Present: normal inspection. Absent: tenderness, meningismus, lymphadenopathy Respiratory exam: Present: normal lung sounds bilaterally. Absent: respiratory distress, wheezes, rales, rhonchi, stridor Cardiovascular Exam: Present: regular rate, normal rhythm, normal heart sounds. Absent: systolic murmur, diastolic murmur, rubs, gallop, clicks GI/Abdominal exam: Present: soft, tenderness (Right upper quadrant and suprapubic), normal bowel sounds. Absent: distended, guarding, rebound, rigid Extremities exam: Present: normal inspection, full ROM, normal capillary refill. Absent: tenderness, pedal edema, joint swelling, calf tenderness Back exam: Present: normal inspection Neurological exam: Present: alert, oriented X3, CN II-XII intact Psychiatric exam: Present: normal affect, normal mood Skin exam: Present: warm, dry, intact, normal color. Absent: rash Course Vital Signs 12/06/18 12/06/18 19:12 22:00 Temperature 98.2 F Pulse Rate 75 72 Respiratory 18 16 Rate Blood Pressure 129/84 104/54 O2 Sat by Pulse 99 99 Oximetry - Reevaluation(s) Reevaluation #1: 12/06/18 22:55 Medical record is reviewed Reevaluation #2: 12/06/18 22:55 Patient has adequate pain control Medical Decision Making - Medical Decision Making 83 female the ER with nonspecific abdominal pain right upper quadrant and suprapubic abdominal pain. Likely ovarian cyst rupture. Patient does have tubal, otherwise ultrasound gallbladder negative CT abdomen pelvis negative. Labwork is normal patient can be discharged home - Lab Data Result diagrams: 12/06/18 20:05 12/06/18 20:05 Lab Results 12/06/18 12/06/18 12/06/18 Range/Units 20:05 20:05 20:05 WBC 8.2 (3.8-10.6) k/uL RBC 4.55 (3.80-5.40) m/uL Hgb 12.4 (11.4-16.0) gm/dL Hct 39.5 (34.0-46.0) % MCV 86.7 (80.0-100.0) fL MCH 27.1 (25.0-35.0) pg MCHC 31.3 (31.0-37.0) g/dL RDW 15.1 (11.5-15.5) % Plt Count 221 (150-450) k/uL Neutrophils % 57 % Lymphocytes % 35 % Monocytes % 4 % Eosinophils % 2 % Basophils % 1 % Neutrophils # 4.7 (1.3-7.7) k/uL Lymphocytes # 2.9 (1.0-4.8) k/uL Monocytes # 0.3 (0-1.0) k/uL Eosinophils # 0.1 (0-0.7) k/uL Basophils # 0.0 (0-0.2) k/uL Sodium 139 (137-145) mmol/L Potassium 4.3 (3.5-5.1) mmol/L Chloride 104 (98-107) mmol/L Carbon Dioxide 27 (22-30) mmol/L Anion Gap 8 mmol/L BUN 11 (7-17) mg/dL Creatinine 1.32 H (0.52-1.04) mg/dL Est GFR (CKD-EPI)AfAm 61 (>60 ml/min/1.73 sqM) Est GFR (CKD-EPI)NonAf 52 (>60 ml/min/1.73 sqM) Glucose 102 H (74-99) mg/dL Calcium 9.6 (8.4-10.2) mg/dL Total Bilirubin 0.3 (0.2-1.3) mg/dL AST 33 (14-36) U/L ALT 31 (9-52) U/L Alkaline Phosphatase 57 (38-126) U/L Total Protein 8.5 H (6.3-8.2) g/dL Albumin 4.8 (3.5-5.0) g/dL Amylase 71 (30-110) U/L Lipase 149 (23-300) U/L Urine Color Yellow Urine Appearance Cloudy H (Clear) Urine pH 6.0 (5.0-8.0) Ur Specific [place] 1.022 (1.001-1.035) Urine Protein Trace H (Negative) Urine Glucose (UA) Negative (Negative) Urine Ketones Negative (Negative) Urine Blood Negative (Negative) Urine Nitrite Negative (Negative) Urine Bilirubin Negative (Negative) Urine Urobilinogen <2.0 (<2.0) mg/dL Ur Leukocyte Esterase Trace H (Negative) Urine RBC 2 (0-5) /hpf Urine WBC 4 (0-5) /hpf Ur Squamous Epith Cells 42 H (0-4) /hpf Urine Bacteria Rare H (None) /hpf Urine Mucus Many H (None) /hpf Urine HCG, Qual (Not Detectd) 12/06/18 Range/Units 20:05 WBC (3.8-10.6) k/uL RBC (3.80-5.40) m/uL Hgb (11.4-16.0) gm/dL Hct (34.0-46.0) % MCV (80.0-100.0) fL MCH (25.0-35.0) pg MCHC (31.0-37.0) g/dL RDW (11.5-15.5) % Plt Count (150-450) k/uL Neutrophils % % Lymphocytes % % Monocytes % % Eosinophils % % Basophils % % Neutrophils # (1.3-7.7) k/uL Lymphocytes # (1.0-4.8) k/uL Monocytes # (0-1.0) k/uL Eosinophils # (0-0.7) k/uL Basophils # (0-0.2) k/uL Sodium (137-145) mmol/L Potassium (3.5-5.1) mmol/L Chloride (98-107) mmol/L Carbon Dioxide (22-30) mmol/L Anion Gap mmol/L BUN (7-17) mg/dL Creatinine (0.52-1.04) mg/dL Est GFR (CKD-EPI)AfAm (>60 ml/min/1.73 sqM) Est GFR (CKD-EPI)NonAf (>60 ml/min/1.73 sqM) Glucose (74-99) mg/dL Calcium (8.4-10.2) mg/dL Total Bilirubin (0.2-1.3) mg/dL AST (14-36) U/L ALT (9-52) U/L Alkaline Phosphatase (38-126) U/L Total Protein (6.3-8.2) g/dL Albumin (3.5-5.0) g/dL Amylase (30-110) U/L Lipase (23-300) U/L Urine Color Urine Appearance (Clear) Urine pH (5.0-8.0) Ur Specific [place] (1.001-1.035) Urine Protein (Negative) Urine Glucose (UA) (Negative) Urine Ketones (Negative) Urine Blood (Negative) Urine Nitrite (Negative) Urine Bilirubin (Negative) Urine Urobilinogen (<2.0) mg/dL Ur Leukocyte Esterase (Negative) Urine RBC (0-5) /hpf Urine WBC (0-5) /hpf Ur Squamous Epith Cells (0-4) /hpf Urine Bacteria (None) /hpf Urine Mucus (None) /hpf Urine HCG, Qual Not Detected (Not Detectd) - Radiology Data Radiology results: report reviewed (CT abdomen pelvis ultrasound gallbladder is negative for acute disease), image reviewed Disposition Clinical Impression: Abdominal pain, Ovarian cyst Disposition: HOME SELF-CARE Condition: Good Instructions: Abdominal Pain (ED) Is patient prescribed a controlled substance at d/c from ED?: No Referrals: None,Stated [Primary Care Provider] - 1-2 days
[2018-12-06 20:22] LABS: Basophils % (A) 1 %; Eosinophils # (A) 0.1 k/uL (0-0.7); Eosinophils % (A) 2 %; HCT 39.5 % (34.0-46.0); HGB 12.4 gm/dL (11.4-16.0); Lymphocytes # (A) 2.9 k/uL (1.0-4.8); Lymphocytes % (A) 35 %; MCH 27.1 pg (25.0-35.0); MCHC 31.3 g/dL (31.0-37.0); MCV 86.7 fL (80.0-100.0); Mean Platelet Volume 6.7; Monocytes # (A) 0.3 k/uL (0-1.0); Monocytes % (A) 4 %; Neutrophils # (A) 4.7 k/uL (1.3-7.7); Neutrophils % (A) 57 %; Platelet Count 221 k/uL (150-450); RBC 4.55 m/uL (3.80-5.40); RDW 15.1 % (11.5-15.5); WBC 8.2 k/uL (3.8-10.6)
[2018-12-06 20:26] LABS: Appearance,Urine Cloudy (Clear); Bacteria,Urine Rare /hpf; Bilirubin,Urine Negative (Negative); Blood,Urine Negative (Negative); Color,Urine Yellow; Glucose,Urine (UA) Negative (Negative); Ketones,Urine Negative (Negative); Leukocyte Esterase,Urine Trace (Negative); Mucus,Urine Many /hpf; Nitrite,Urine Negative (Negative); Protein,Urine Trace (Negative); RBC,Urine 2 /hpf (0-5); Specific Gravity,Urine 1.022 (1.001-1.035); Squamous Epithelial Cell,Urine 42 /hpf (0-4); Urobilinogen,Urine <2.0 mg/dL (<2.0); WBC,Urine 4 /hpf (0-5)
[2018-12-06 20:32] LABS: Albumin 4.8 g/dL (3.5-5.0); Calcium 9.6 mg/dL (8.4-10.2); Potassium 4.3 mmol/L (3.5-5.1); Total Bilirubin 0.3 mg/dL (0.2-1.3); Total Protein 8.5 g/dL (6.3-8.2)
--- NOTE | 2018-12-06 21:08 | US ---
EXAMINATION TYPE: US gallbladder DATE OF EXAM: 12/06/2018 COMPARISON: NONE CLINICAL HISTORY: Pain. Epigastric pain today. History of kidney stones. Patient not NPO, ate 3-4 nuria rs prior to exam EXAM MEASUREMENTS: Liver Length: 14.2 cm Gallbladder Wall: 0.3 cm. This is at the upper limits of normal. The gallbladder however appears non distended. CBD: 0.3 cm Right Kidney: 10.1 x 4.1 x 4.2 cm Pancreas: Obscured by bowel gas Liver: appears wnl Gallbladder: no evidence of stones Evidence for sonographic Leung's sign: no CBD: wnl Right Kidney: no evidence of hydronephrosis IMPRESSION: 1. No acute right upper quadrant abnormality
[2018-12-06] MEDS ORDERED: MORPHINE SULFATE 4 MG/ML SYRINGE IVP STA (21:44)
[2018-12-06 22:01] VITALS: BP 104/54; PULSE 72; RESP 16
--- NOTE | 2018-12-06 22:45 | CT ---
EXAMINATION TYPE: CT abdomen pelvis wo con DATE OF EXAM: 12/06/2018 COMPARISON: None HISTORY: abdominal/flank pain CT DLP: 323.7 mGycm Automated exposure control for dose reduction was used. TECHNIQUE: Helical acquisition of images was performed from the lung bases through the pelvis. FINDINGS: Lung bases are clear. There is no pleural effusion. Heart size is normal. There is no pericardial eff usion. Liver spleen pancreas gallbladder appear normal. Bile ducts are not dilated. There is no adrenal mass. Kidneys have normal size and contour. There is no hydronephrosis. Ureters a re not dilated. I see no retroperitoneal adenopathy. There is small amount of free fluid in the cul-d e-sac. Uterus is slightly retroverted. There is no inguinal hernia. I see no mesenteric edema. Append ix is not definitely seen. There is no sign of a thickened appendix.. There is no sign of free air. T here are loops of jejunum that appear to show some wall thickening in the left upper quadrant. These measure up to 2.6 cm in diameter. IMPRESSION: NO EVIDENCE OF RENAL STONE OR OBSTRUCTION. THERE IS SOME JEJUNAL WALL THICKENING THAT COULD RELATE TO GASTROENTERITIS. MINIMAL FREE FLUID IN THE CUL-DE-SAC ON THE RIGHT SIDE.
[2018-12-06] MEDS ORDERED: ACET/COD 300 MG/30 MG STARTER PACK 6 TAB BTL PO STA (22:56)
== END 2018-12-06 23:10 | disposition home or self-care (01) ==
LOC: EC 19:02
DX: N83.209 Unspecified ovarian cyst, unspecified side (principal); Z98.51 Tubal ligation status; Z87.442 Personal history of urinary calculi
CPT/HCPCS: 36415; 80053; 82150; 83690; 85025; 81001; 81025; 87086; 76705; 74176; 99284; 96374; 96375 ×2; 96376; 96361 ×2; J2270; J2405; J1885

== ENCOUNTER → 2019-05-21 | Outpatient (CLI) | payer OTHER ==
--- NOTE | 2019-05-22 14:24 | MR ---
EXAMINATION TYPE: MR brain/orbits wo/w con DATE OF EXAM: 05/21/2019 COMPARISON: None HISTORY: Left eye blurred vision, Left eye turning inward, migraines TECHNIQUE: Multiplanar, multisequence images of the brain and brainstem is performed without and with IV contras t, utilizing 6.5 mL intravenous Gadavist . FINDINGS: Diffusion weighted images demonstrate no evidence of a recent infarct or other diffusion ab normality. There is no extra-axial fluid collection or significant white matter signal abnormality. Within the basal ganglia there is some increased signal on inversion recovery, T2-weighted sequences, low signal on T1-weighted images bilaterally without enhancement which may represent basal ganglia c alcifications rather than small lacunar infarcts and could be confirmed with CT. The ventricular syst em and cisternal spaces are normal in size and appearance. The brain volume is age appropriate. Midline structures demonstrate normal morphology. The craniocervical junction appears within normal limits. Post contrast images demonstrate no abnormal enhancement. The dural venous sinuses appear pa tent. The visualized sinuses are clear and the globes are intact. Orbits show symmetric appearance. Extraocular muscles are symmetric. Optic nerves show an unremarkabl e appearance, no abnormal enhancement. IMPRESSION: Nonspecific findings described above. Normal orbits.
== END | disposition home or self-care (01) ==
LOC: RADMRIMAIN 20:01
PROVIDERS: ATTEND Ophthalmology
DX: G43.111 Migraine with aura, intractable, with status migrainosus (principal)
CPT/HCPCS: 70543; 70553; A9585

== ENCOUNTER → 2019-06-11 | Outpatient (CLI) | payer OTHER ==
[2019-06-11 14:22] LABS: Basophils % (A) 0 %; Eosinophils # (A) 0.1 k/uL (0-0.7); Eosinophils % (A) 2 %; HCT 37.9 % (34.0-46.0); HGB 12.4 gm/dL (11.4-16.0); Lymphocytes # (A) 1.5 k/uL (1.0-4.8); Lymphocytes % (A) 26 %; MCH 28.4 pg (25.0-35.0); MCHC 32.6 g/dL (31.0-37.0); MCV 86.9 fL (80.0-100.0); Monocytes # (A) 0.2 k/uL (0-1.0); Monocytes % (A) 4 %; Neutrophils # (A) 3.9 k/uL (1.3-7.7); Neutrophils % (A) 67 %; Platelet Count 244 k/uL (150-450); RBC 4.36 m/uL (3.80-5.40); RDW 15.6 % (11.5-15.5); WBC 5.8 k/uL (3.8-10.6)
[2019-06-11 15:29] LABS: Erythrocyte Sedimentation Rate 7 mm/hr (0-20)
[2019-06-11 19:30] LABS: Rheumatoid Factor 5 IU/mL (0-15)
[2019-06-12 05:12] LABS: Toxoplasma Antibody (IgG) <3.0 IU/mL (<7.2); Toxoplasma Antibody (IgM) 5.9 AU/mL (<8.0)
[2019-06-12 09:28] LABS: Angiotensin-1 Converting Enz. 41 U/L (8-52)
[2019-06-12 12:10] LABS: HLA B27 NEGATIVE
[2019-06-13 11:14] LABS: Lyme IgG/IgM 0.19 Index
[2019-06-13 14:03] LABS: Protein C (Activity) 84 % (71-138)
== END | disposition home or self-care (01) ==
LOC: LABWHC1 13:48
PROVIDERS: ATTEND Ophthalmology
DX: H30.92 Unspecified chorioretinal inflammation, left eye (principal); H44.132 Sympathetic uveitis, left eye
CPT/HCPCS: 36415; 82164; 83090; 85025; 85303; 85549; 85652; 86038; 86431; 86618; 86777; 86778; 86780; 86812

== ENCOUNTER 2021-12-11 11:23 | Emergency (ER) | payer OTHER ==
[2021-12-11 12:15] VITALS: BP 134/77; PULSE 77; RESP 18; TEMP 98
[2021-12-11] MEDS ORDERED: SODIUM CHLORIDE 0.9% 500 ML 1,000 ML IV STA (12:22)
[2021-12-11] MEDS ORDERED: MORPHINE SULFATE 4 MG/ML SYRINGE IV STA (12:45)
[2021-12-11] MEDS ORDERED: KETOROLAC 15 MG/ML 1 ML VIAL IVP STA (12:45)
[2021-12-11] MEDS ORDERED: ONDANSETRON 4 MG/2 ML VIAL IVP STA (12:45)
--- NOTE | 2021-12-11 12:52 | ED ---
Female Urogenital HPI - General Chief complaint: Vaginal Bleeding Stated complaint: abd/low back cramping Time Seen by Provider: 12/11/21 12:21 Source: patient, RN notes reviewed Mode of arrival: ambulatory Limitations: no limitations - History of Present Illness Initial comments: This is a pleasant 36-year-old female who presents to the emergency department complaining of vaginal bleeding which started last night. Patient states she is having a lot of pelvic cramping and pain which is bilateral. Patient has had this before when she had a ruptured ovarian cyst. However, she states at that time the pain wasn't quite as intense. It was 2 weeks ago. Patient is status post tubal ligation previously. She denies any nausea or vomiting. No fever or chills. No problems with urination. Positive bowel movements. No vaginal discharge. No chest pain or shortness of breath. Last Menstrual Period: 11/27/21 - Related Data Previous Rx's Medication Instructions Recorded HYDROcodone/APAP 5-325MG [[place] 1 each PO Q6H PRN #12 tab 12/11/21 5-325] Naproxen [Naprosyn] 375 mg PO Q12HR PRN #20 tablet 12/11/21 Allergies Allergy/AdvReac Type Severity Reaction Status Date / Time No Known Allergies Allergy Verified 12/11/21 12:15 Review of Systems ROS Statement: Those systems with pertinent positive or pertinent negative responses have been documented in the HPI. ROS Other: All systems not noted in ROS Statement are negative. Past Medical History Additional Past Medical History / Comment(s): kidney stones with stent, melanie rhagia. History of Any Multi-Drug Resistant Organisms: None Reported Past Surgical History: Section, Tonsillectomy, Tubal Ligation Additional Past Surgical History / Comment(s): ureter stent - been removed Past Anesthesia/Blood Transfusion Reactions: No Reported Reaction Past Psychological History: Anxiety Smoking Status: Never smoker Past Alcohol Use History: None Reported Past Drug Use History: None Reported - Past Family History Mother Additional Family Medical History / Comment(s): hypotension, severe anxiety and severe depression, vertigo. CAD runs in mother's family Father Additional Family Medical History / Comment(s): "has a bad heart", back problems. CAD runs in father's family General Exam - General Exam Comments Initial Comments: Does not appear to be ill or toxic Limitations: no limitations General appearance: alert, in distress Head exam: Present: atraumatic, normocephalic, normal inspection Eye exam: Present: normal appearance, PERRL, EOMI. Absent: scleral icterus, conjunctival injection, periorbital swelling ENT exam: Present: normal exam, mucous membranes moist Neck exam: Present: normal inspection. Absent: tenderness, meningismus, lymphadenopathy Respiratory exam: Present: normal lung sounds bilaterally. Absent: respiratory distress, wheezes, rales, rhonchi, stridor Cardiovascular Exam: Present: regular rate, normal rhythm, normal heart sounds. Absent: systolic murmur, diastolic murmur, rubs, gallop, clicks GI/Abdominal exam: Present: soft, normal bowel sounds. 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 Absent: erythema, swelling Speculum exam: Present: vaginal bleeding. Absent: normal speculum exam, erythema, vaginal discharge, cervical discharge, foreign body, tissue, laceration Extremities exam: Present: normal inspection, full ROM, normal capillary refill. Absent: tenderness, pedal edema, joint swelling, calf tenderness Back exam: Present: normal inspection Neurological exam: Present: alert, oriented X3, CN II-XII intact Psychiatric exam: Present: normal affect, normal mood Skin exam: Present: warm, dry, intact, normal color. Absent: rash Course Vital Signs 12/11/21 12:10 Temperature 98.0 F Pulse Rate 77 Respiratory 18 Rate Blood Pressure 134/77 O2 Sat by Pulse 98 Oximetry Medical Decision Making - Medical Decision Making Differential diagnosis, dysfunctional uterine bleeding, bleeding uterine fibroid, hemorrhagic ovarian cyst, less likely ovarian torsion, patient is status post tubal ligation, ectopic very unlikely. Patient's ultrasound showed no acute pathology. Patient's TSH was low but the T4 was normal. Patient had no significant bleeding at Discharge. Hemodynamically stable. Patient does have a medical concierge in [place], Dr. Hair roca. She knows to call the morning for follow-up appointment. All findings discussed with the patient. All questions answered. Follow-up with your regular physician as directed. Return to the ER immediately if any symptoms worsen, new symptoms arise, or any other problems develop. - Lab Data Result diagrams: 12/11/21 12:43 12/11/21 12:43 Lab Results 12/11/21 12/11/21 12/11/21 Range/Units 12:43 12:43 12:43 WBC 9.0 (3.8-10.6) k/uL RBC 4.51 (3.80-5.40) m/uL Hgb 14.4 (11.4-16.0) gm/dL Hct 43.5 (34.0-46.0) % MCV 96.5 (80.0-100.0) fL MCH 32.0 (25.0-35.0) pg MCHC 33.2 (31.0-37.0) g/dL RDW 13.4 (11.5-15.5) % Plt Count 239 (150-450) k/uL MPV 7.7 Neutrophils % 72 % Lymphocytes % 22 % Monocytes % 3 % Eosinophils % 1 % Basophils % 0 % Neutrophils # 6.5 (1.3-7.7) k/uL Lymphocytes # 2.0 (1.0-4.8) k/uL Monocytes # 0.2 (0-1.0) k/uL Eosinophils # 0.1 (0-0.7) k/uL Basophils # 0.0 (0-0.2) k/uL Sodium 136 L (137-145) mmol/L Potassium 4.5 (3.5-5.1) mmol/L Chloride 109 H (98-107) mmol/L Carbon Dioxide 22 (22-30) mmol/L Anion Gap 5 mmol/L BUN 8 (7-17) mg/dL Creatinine 0.69 (0.52-1.04) mg/dL Est GFR (CKD-EPI)AfAm >90 (>60 ml/min/1.73 sqM) Est GFR (CKD-EPI)NonAf >90 (>60 ml/min/1.73 sqM) Glucose 93 (74-99) mg/dL Calcium 9.6 (8.4-10.2) mg/dL Total Bilirubin 0.7 (0.2-1.3) mg/dL AST 57 H (14-36) U/L ALT 59 H (4-34) U/L Alkaline Phosphatase 73 (38-126) U/L Total Protein 8.7 H (6.3-8.2) g/dL Albumin 4.6 (3.5-5.0) g/dL TSH 0.195 L (0.465-4.680) mIU/L Free T4 1.40 (0.78-2.19) ng/dL Urine Color Yellow Urine Appearance Clear (Clear) Urine pH 6.5 (5.0-8.0) Ur Specific [place] 1.021 (1.001-1.035) Urine Protein Trace H (Negative) Urine Glucose (UA) Negative (Negative) Urine Ketones Trace H (Negative) Urine Blood Moderate H (Negative) Urine Nitrite Negative (Negative) Urine Bilirubin Negative (Negative) Urine Urobilinogen <2.0 (<2.0) mg/dL Ur Leukocyte Esterase Negative (Negative) Urine RBC 2 (0-5) /hpf Urine WBC 2 (0-5) /hpf Ur Squamous Epith Cells 1 (0-4) /hpf Urine Bacteria Rare H (None) /hpf Urine Mucus Moderate H (None) /hpf Urine HCG, Qual (Not Detectd) Blood Type Blood Type Recheck Bld Type Recheck Status Antibody Screen Spec Expiration Date 12/11/21 12/11/21 Range/Units 12:43 15:18 WBC (3.8-10.6) k/uL RBC (3.80-5.40) m/uL Hgb (11.4-16.0) gm/dL Hct (34.0-46.0) % MCV (80.0-100.0) fL MCH (25.0-35.0) pg MCHC (31.0-37.0) g/dL RDW (11.5-15.5) % Plt Count (150-450) k/uL MPV Neutrophils % % Lymphocytes % % Monocytes % % Eosinophils % % Basophils % % Neutrophils # (1.3-7.7) k/uL Lymphocytes # (1.0-4.8) k/uL Monocytes # (0-1.0) k/uL Eosinophils # (0-0.7) k/uL Basophils # (0-0.2) k/uL Sodium (137-145) mmol/L Potassium (3.5-5.1) mmol/L Chloride (98-107) mmol/L Carbon Dioxide (22-30) mmol/L Anion Gap mmol/L BUN (7-17) mg/dL Creatinine (0.52-1.04) mg/dL Est GFR (CKD-EPI)AfAm (>60 ml/min/1.73 sqM) Est GFR (CKD-EPI)NonAf (>60 ml/min/1.73 sqM) Glucose (74-99) mg/dL Calcium (8.4-10.2) mg/dL Total Bilirubin (0.2-1.3) mg/dL AST (14-36) U/L ALT (4-34) U/L Alkaline Phosphatase (38-126) U/L Total Protein (6.3-8.2) g/dL Albumin (3.5-5.0) g/dL TSH (0.465-4.680) mIU/L Free T4 (0.78-2.19) ng/dL Urine Color Urine Appearance (Clear) Urine pH (5.0-8.0) Ur Specific [place] (1.001-1.035) Urine Protein (Negative) Urine Glucose (UA) (Negative) Urine Ketones (Negative) Urine Blood (Negative) Urine Nitrite (Negative) Urine Bilirubin (Negative) Urine Urobilinogen (<2.0) mg/dL Ur Leukocyte Esterase (Negative) Urine RBC (0-5) /hpf Urine WBC (0-5) /hpf Ur Squamous Epith Cells (0-4) /hpf Urine Bacteria (None) /hpf Urine Mucus (None) /hpf Urine HCG, Qual Not Detected (Not Detectd) Blood Type B Positive Blood Type Recheck B Pos Bld Type Recheck Status No Antibody Screen NEGATIVE Spec Expiration Date 12/14/20212342 - Radiology Data Radiology results: report reviewed, image reviewed Disposition Clinical Impression: DUB (dysfunctional uterine bleeding), Low TSH level Disposition: HOME SELF-CARE Condition: Good Instructions (If sedation given, give patient instructions): Dysfunctional Uterine Bleeding (ED) Additional Instructions: Follow-up with your regular physician as directed. Return to the ER immediately if any symptoms worsen, new symptoms arise, or any other problems develop. Make a follow-up appointment with your medical concierge as discussed. Prescriptions: Naproxen [Naprosyn] 375 mg PO Q12HR PRN #20 tablet PRN Reason: Pain HYDROcodone/APAP 5-325MG [[place] 5-325] 1 each PO Q6H PRN #12 tab PRN Reason: Pain Is patient prescribed a controlled substance at d/c from ED?: No Referrals: Jonathan Rojas DO [REFERRING] - 1-2 days Ronald Guillen [STAFF PHYSICIAN] - 1-2 days Time of Disposition: 16:12
[2021-12-11 13:12] LABS: ALT 59 U/L (4-34); AST 57 U/L (14-36); African American GFR (CKD) >90 (>60 ml/min/1.73 sqM); Albumin 4.6 g/dL (3.5-5.0); Alkaline Phosphatase 73 U/L (38-126); Anion Gap 5 mmol/L; Blood Urea Nitrogen 8 mg/dL (7-17); Calcium 9.6 mg/dL (8.4-10.2); Carbon Dioxide 22 mmol/L (22-30); Chloride 109 mmol/L (98-107); Glucose 93 mg/dL (74-99); Non-African American GFR(CKD) >90 (>60 ml/min/1.73 sqM); Sodium 136 mmol/L (137-145); Total Bilirubin 0.7 mg/dL (0.2-1.3); Total Protein 8.7 g/dL (6.3-8.2)
[2021-12-11 13:13] LABS: Basophils % (A) 0 %; Eosinophils # (A) 0.1 k/uL (0-0.7); Eosinophils % (A) 1 %; HCT 43.5 % (34.0-46.0); HGB 14.4 gm/dL (11.4-16.0); Lymphocytes % (A) 22 %; MCHC 33.2 g/dL (31.0-37.0); MCV 96.5 fL (80.0-100.0); Mean Platelet Volume 7.7; Monocytes # (A) 0.2 k/uL (0-1.0); Monocytes % (A) 3 %; Neutrophils # (A) 6.5 k/uL (1.3-7.7); Neutrophils % (A) 72 %; Platelet Count 239 k/uL (150-450); RBC 4.51 m/uL (3.80-5.40); RDW 13.4 % (11.5-15.5)
[2021-12-11 13:14] LABS: Potassium 4.5 mmol/L (3.5-5.1)
--- NOTE | 2021-12-11 13:48 | US ---
EXAMINATION TYPE: US transvaginal DATE OF EXAM: 12/11/2021 COMPARISON: CT 2018, US 2018 CLINICAL HISTORY: Vaginal bleeding, pelvic pain. Pelvic pain TECHNIQUE: Transvaginal ER exam Date of LMP: 2 to 3 weeks ago EXAM MEASUREMENTS: Uterus: 7.5 x 3.8 x 4.7 cm Endometrial Stripe: 0.9 cm Right Ovary: 3.3 x 1.4 x 2.6 cm Left Ovary: 2.6 x 1.4 x 2.2 cm 1. Uterus: heterogeneous 2. Endometrium: appears wnl 3. Right Ovary: multiple follicles 4. Left Ovary: multiple follicles 5. Bilateral Adnexa: wnl 6. Posterior cul-de-sac: small amount of free fluid IMPRESSION: 1. Heterogeneous appearance to the uterus is nonspecific. No discrete fibroid change seen. 2. Incidental note made of a small amount of free fluid. Correlate with MRI if symptoms persist.
[2021-12-11] MEDS ORDERED: SODIUM CHLORIDE 0.9% 500 ML 500 ML IV ONE (14:38)
[2021-12-11 15:40] LABS: Appearance,Urine Clear (Clear); Bacteria,Urine Rare /hpf; Bilirubin,Urine Negative (Negative); Blood,Urine Moderate (Negative); Color,Urine Yellow; Glucose,Urine (UA) Negative (Negative); Ketones,Urine Trace (Negative); Leukocyte Esterase,Urine Negative (Negative); Mucus,Urine Moderate /hpf; Nitrite,Urine Negative (Negative); PH, Urine 6.5 (5.0-8.0); Protein,Urine Trace (Negative); RBC,Urine 2 /hpf (0-5); Specific Gravity,Urine 1.021 (1.001-1.035); Squamous Epithelial Cell,Urine 1 /hpf (0-4); Urobilinogen,Urine <2.0 mg/dL (<2.0); WBC,Urine 2 /hpf (0-5)
[2021-12-11] MEDS ORDERED: HYDROcodone/APAP 5-325MG 1 EACH TAB PO STA (16:20)
== END 2021-12-11 16:45 | disposition home or self-care (01) ==
LOC: EC 11:23
DX: N93.8 Other specified abnormal uterine and vaginal bleeding (principal); E03.9 Hypothyroidism, unspecified; F41.9 Anxiety disorder, unspecified; Z98.51 Tubal ligation status
CPT/HCPCS: 99284; 96374; 96375 ×2; 96361; 36415; 86900; 86901; 84439; 80053; 84443; 85025; 86850; 81001; 81025; 93975; 76830; J2270; J2405; J1885; 87491; 87591

== ENCOUNTER 2022-02-08 15:48 | Emergency (ER) | payer OTHER ==
[2022-02-08] MEDS ORDERED: SODIUM CHLORIDE 0.9% 1,000 ML IV STA (15:56)
[2022-02-08 16:02] VITALS: RESP 18; TEMP 98
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
[2022-02-08 16:44] LABS: Basophils % (A) 0 %; Eosinophils # (A) 0.1 k/uL (0-0.7); Eosinophils % (A) 1 %; HCT 42.7 % (34.0-46.0); HGB 13.9 gm/dL (11.4-16.0); Lymphocytes % (A) 31 %; MCH 31.1 pg (25.0-35.0); MCHC 32.5 g/dL (31.0-37.0); MCV 95.7 fL (80.0-100.0); Mean Platelet Volume 7.9; Monocytes # (A) 0.2 k/uL (0-1.0); Monocytes % (A) 3 %; Neutrophils # (A) 4.1 k/uL (1.3-7.7); Neutrophils % (A) 63 %; Platelet Count 275 k/uL (150-450); RBC 4.46 m/uL (3.80-5.40); RDW 13.3 % (11.5-15.5); WBC 6.4 k/uL (3.8-10.6)
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
[2022-02-08 16:53] LABS: ALT 32 U/L (4-34); AST 37 U/L (14-36); African American GFR (CKD) >90 (>60 ml/min/1.73 sqM); Albumin 4.6 g/dL (3.5-5.0); Alkaline Phosphatase 75 U/L (38-126); Anion Gap 12 mmol/L; Blood Urea Nitrogen 8 mg/dL (7-17); Carbon Dioxide 21 mmol/L (22-30); Chloride 110 mmol/L (98-107); Glucose 87 mg/dL (74-99); Non-African American GFR(CKD) >90 (>60 ml/min/1.73 sqM); Potassium 4.3 mmol/L (3.5-5.1); Sodium 143 mmol/L (137-145); Total Bilirubin 0.5 mg/dL (0.2-1.3); Total Protein 8.6 g/dL (6.3-8.2)
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
[2022-02-08 17:00] LABS: Alcohol 110 mg/dL
[2022-02-08 17:06] LABS: Prothrombin Time 10.4 sec (9.0-12.0)
[2022-02-08 17:11] LABS: Partial Thromboplastin Time 21.4 sec (22.0-30.0)
[2022-02-08 18:40] VITALS: BP 119/79; PULSE 87
== END 2022-02-08 17:42 | disposition home or self-care (01) ==
LOC: EC 15:48
DX: S10.93XA Contusion of unspecified part of neck, initial encounter (principal); V49.49XA Driver injured in collision with other motor vehicles in traffic accident, initial encounter; Y92.410 Unspecified street and highway as the place of occurrence of the external cause
CPT/HCPCS: 93005; 86900; 86901; 80053; 84484; 85025; 85610; 85730; 86850; 84702; 80320; 72125; 70450; 71260; 74177; 99284; 96360; Q9967; 36415

== ENCOUNTER 2022-06-16 19:06 | Emergency (ER) | payer OTHER ==
[2022-06-16 19:33] VITALS: TEMP 98.2
[2022-06-16] MEDS ORDERED: MORPHINE SULFATE 4 MG/ML SYRINGE IVP STA (20:05)
[2022-06-16] MEDS ORDERED: SODIUM CHLORIDE 0.9% 1,000 ML IV ONE (20:08)
[2022-06-16 20:54] LABS: Basophils % (A) 0 %; Eosinophils # (A) 0.1 k/uL (0-0.7); Eosinophils % (A) 2 %; HCT 46.7 % (34.0-46.0); HGB 15.8 gm/dL (11.4-16.0); Lymphocytes # (A) 1.7 k/uL (1.0-4.8); Lymphocytes % (A) 28 %; MCH 33.1 pg (25.0-35.0); MCHC 33.9 g/dL (31.0-37.0); MCV 97.7 fL (80.0-100.0); Mean Platelet Volume 7.4; Monocytes # (A) 0.2 k/uL (0-1.0); Monocytes % (A) 3 %; Neutrophils % (A) 66 %; Platelet Count 236 k/uL (150-450); RBC 4.78 m/uL (3.80-5.40); RDW 14.3 % (11.5-15.5); WBC 6.1 k/uL (3.8-10.6)
[2022-06-16 20:56] LABS: Appearance,Urine Clear (Clear); Bacteria,Urine Rare /hpf; Bilirubin,Urine Negative (Negative); Blood,Urine Large (Negative); Color,Urine Colorless; Glucose,Urine (UA) Negative (Negative); Hyaline Casts,Urine 1 /lpf (0-2); Ketones,Urine Negative (Negative); Leukocyte Esterase,Urine Negative (Negative); Mucus,Urine Rare /hpf; Nitrite,Urine Negative (Negative); PH, Urine 5.5 (5.0-8.0); Protein,Urine Negative (Negative); RBC,Urine <1 /hpf (0-5); Specific Gravity,Urine 1.003 (1.001-1.035); Squamous Epithelial Cell,Urine <1 /hpf (0-4); Urobilinogen,Urine <2.0 mg/dL (<2.0); WBC,Urine <1 /hpf (0-5)
[2022-06-16 20:59] LABS: Prothrombin Time 10.6 sec (9.0-12.0)
[2022-06-16 21:12] LABS: ALT 27 U/L (4-34); AST 36 U/L (14-36); African American GFR (CKD) >90 (>60 ml/min/1.73 sqM); Alkaline Phosphatase 100 U/L (38-126); Anion Gap 14 mmol/L; Blood Urea Nitrogen 5 mg/dL (7-17); Calcium 9.8 mg/dL (8.4-10.2); Carbon Dioxide 21 mmol/L (22-30); Chloride 103 mmol/L (98-107); Glucose 83 mg/dL (74-99); Non-African American GFR(CKD) >90 (>60 ml/min/1.73 sqM); Potassium 3.8 mmol/L (3.5-5.1); Sodium 138 mmol/L (137-145); Total Bilirubin 0.3 mg/dL (0.2-1.3); Total Protein 9.1 g/dL (6.3-8.2)
[2022-06-16] MEDS ORDERED: HYDROmorphone 0.5 MG/0.5 ML SYRINGE IVP STA (21:17)
--- NOTE | 2022-06-16 21:40 | US ---
EXAMINATION TYPE: US transvaginal DATE OF EXAM: 06/16/2022 COMPARISON: NONE CLINICAL HISTORY: vaginal bleed. cramping, worse on the right. vaginal bleeding with clots today TECHNIQUE: Transvaginal (TV). Date of LMP: 05/23/22 EXAM MEASUREMENTS: Uterus: 8.9 x 4.2 x 4.9 cm Endometrial Stripe: 0.5 cm Right Ovary: 3.2 x 2.1 x 1.7 cm Left Ovary: 3.7 x 1.2 x 1.3 cm 1. Uterus: Anteverted appears wnl 2. Endometrium: appears wnl 3. Right Ovary: follicles noted 4. Left Ovary: follicles noted Spectral, color and waveform doppler imaging shows good arterial and venous flow within the ovaries ; there is no evidence for ovarian torsion. 5. Bilateral Adnexa: small amount of free fluid left adnexa 6. Posterior cul-de-sac: wnl IMPRESSION: There is minimal free fluid on the left side. No adnexal mass. Normal uterus. No evidence of ovarian torsion.
[2022-06-16] MEDS ORDERED: KETOROLAC 15 MG/ML 1 ML VIAL IVP STA (22:12)
--- NOTE | 2022-06-16 22:23 | ED ---
General Adult HPI - General Chief complaint: Vaginal Bleeding Stated complaint: Vaginal bleeding Time Seen by Provider: 06/16/22 19:40 Source: patient Mode of arrival: ambulatory - History of Present Illness Initial comments: 36-year-old female presents emergency Department with lower abdominal cramping and vaginal bleeding. Reports that her bleeding started 2 days ago as spotting. She did have a last menstrual cycle on the . Normally has bleeding for approximately 9 days which is normal for her. Bleeding in between cycles is not normal for her. She has a history of ovarian cysts and endometriosis. She has had a tubal ligation. Does not currently follow with an HOSPITAL EDUCATOR. Denies concern for . No abnormal discharge or concern for sexually transmitted i nfections. Patient is status post appendectomy. No fevers. Did not take any medications prior to coming into the hospital. No other alleviating, precipitating or modifying factors - Related Data Home Medications Medication Instructions Recorded Confirmed Butalb/Acetaminophen/Caffeine 1 - 2 tab PO Q6H PRN 02/08/22 02/08/22 [Fioricet 50-325-40] Propranolol [Inderal] 10 mg PO DAILY 02/08/22 02/08/22 buPROPion HCL [Wellbutrin SR] 100 mg PO DAILY 02/08/22 02/08/22 clonazePAM [KlonoPIN] 1 mg PO BID PRN 02/08/22 02/08/22 Previous Rx's Medication Instructions Recorded HYDROcodone/APAP 7.5-325MG [Superior 1 tab PO Q4HR PRN #18 tab 06/16/22 7.5-325] Allergies Allergy/AdvReac Type Severity Reaction Status Date / Time No Known Allergies Allergy Verified 06/16/22 19:34 Review of Systems ROS Statement: Those systems with pertinent positive or pertinent negative responses have been documented in the HPI. ROS Other: All systems not noted in ROS Statement are negative. Past Medical History Additional Past Medical History / Comment(s): kidney stones with stent, menorrha robina. History of Any Multi-Drug Resistant Organisms: None Reported Past Surgical History: Section, Tonsillectomy, Tubal Ligation Additional Past Surgical History / Comment(s): ureter stent - been removed Past Anesthesia/Blood Transfusion Reactions: No Reported Reaction Past Psychological History: Anxiety Smoking Status: Never smoker Past Alcohol Use History: None Reported, Occasional Past Drug Use History: None Reported - Past Family History Mother Additional Family Medical History / Comment(s): hypotension, severe anxiety and severe depression, vertigo. CAD runs in mother's family Father Additional Family Medical History / Comment(s): "has a bad heart", back problems. CAD runs in father's family General Exam General appearance: alert, in no apparent distress Head exam: Present: atraumatic, normocephalic, normal inspection Eye exam: Present: normal appearance, PERRL, EOMI. Absent: scleral icterus, c onjunctival injection, periorbital swelling ENT exam: Present: normal exam, mucous membranes moist Neck exam: Present: normal inspection. Absent: tenderness, meningismus, lymphadenopathy Respiratory exam: Present: normal lung sounds bilaterally. Absent: respiratory distress, wheezes, rales, rhonchi, stridor Cardiovascular Exam: Present: normal rhythm, tachycardia, normal heart sounds. Absent: systolic murmur, diastolic murmur, rubs, gallop, clicks GI/Abdominal exam: Present: soft, tenderness (left, right lower quadarants and suprapubic pain), normal bowel sounds. Absent: distended, guarding, rebound, rigid Extremities exam: Present: normal inspection, full ROM, normal capillary refill. Absent: tenderness, pedal edema, joint swelling, calf tenderness Back exam: Present: normal inspection Neurological exam: Present: alert, oriented X3, CN II-XII intact Psychiatric exam: Present: normal affect, normal mood Skin exam: Present: warm, dry, intact, normal color. Absent: rash Course Vital Signs 06/16/22 06/16/22 19:29 22:27 Temperature 98.2 F 98.2 F Pulse Rate 120 H 80 Respiratory 19 18 Rate Blood Pressure 120/81 120/88 O2 Sat by Pulse 98 98 Oximetry Medical Decision Making - Medical Decision Making Upon arrival patient was placed in room 26. A thorough history and physical exam was performed. IV access was established laboratory studies were conducted. Patient was given a dose of pain medications. Laboratory studies are reviewed. Patient does have a pelvic x-ray performed which demonstrates some trace free fluid in the pelvis. I did discuss the diagnosis, differential treatment options. Patient does have improvement in her pain and therefore will be discharged home. Given Superior for pain control. Should follow up with HOSPITAL EDUCATOR for further evaluation of her symptoms or return for any new or worsening symptoms. Patient agrees to plan she was discharged home in stable condition - Lab Data Result diagrams: 06/16/22 20:30 06/16/22 20:30 Lab Results 06/16/22 06/16/22 06/16/22 Range/Units 20:30 20:30 20:30 WBC 6.1 (3.8-10.6) k/uL RBC 4.78 (3.80-5.40) m/uL Hgb 15.8 (11.4-16.0) gm/dL Hct 46.7 H (34.0-46.0) % MCV 97.7 (80.0-100.0) fL MCH 33.1 (25.0-35.0) pg MCHC 33.9 (31.0-37.0) g/dL RDW 14.3 (11.5-15.5) % Plt Count 236 (150-450) k/uL MPV 7.4 Neutrophils % 66 % Lymphocytes % 28 % Monocytes % 3 % Eosinophils % 2 % Basophils % 0 % Neutrophils # 4.0 (1.3-7.7) k/uL Lymphocytes # 1.7 (1.0-4.8) k/uL Monocytes # 0.2 (0-1.0) k/uL Eosinophils # 0.1 (0-0.7) k/uL Basophils # 0.0 (0-0.2) k/uL PT 10.6 (9.0-12.0) sec INR 1.0 (<1.2) Sodium (137-145) mmol/L Potassium (3.5-5.1) mmol/L Chloride (98-107) mmol/L Carbon Dioxide (22-30) mmol/L Anion Gap mmol/L BUN (7-17) mg/dL Creatinine (0.52-1.04) mg/dL Est GFR (CKD-EPI)AfAm (>60 ml/min/1.73 sqM) Est GFR (CKD-EPI)NonAf (>60 ml/min/1.73 sqM) Glucose (74-99) mg/dL Calcium (8.4-10.2) mg/dL Total Bilirubin (0.2-1.3) mg/dL AST (14-36) U/L ALT (4-34) U/L Alkaline Phosphatase (38-126) U/L Total Protein (6.3-8.2) g/dL Albumin (3.5-5.0) g/dL Urine Color Colorless Urine Appearance Clear (Clear) Urine pH 5.5 (5.0-8.0) Ur Specific [place] 1.003 (1.001-1.035) Urine Protein Negative (Negative) Urine Glucose (UA) Negative (Negative) Urine Ketones Negative (Negative) Urine Blood Large H (Negative) Urine Nitrite Negative (Negative) Urine Bilirubin Negative (Negative) Urine Urobilinogen <2.0 (<2.0) mg/dL Ur Leukocyte Esterase Negative (Negative) Urine RBC <1 (0-5) /hpf Urine WBC <1 (0-5) /hpf Ur Squamous Epith Cells <1 (0-4) /hpf Urine Bacteria Rare H (None) /hpf Hyaline Casts 1 (0-2) /lpf Urine Mucus Rare H (None) /hpf Urine HCG, Qual (Not Detectd) 06/16/22 06/16/22 Range/Units 20:30 20:30 WBC (3.8-10.6) k/uL RBC (3.80-5.40) m/uL Hgb (11.4-16.0) gm/dL Hct (34.0-46.0) % MCV (80.0-100.0) fL MCH (25.0-35.0) pg MCHC (31.0-37.0) g/dL RDW (11.5-15.5) % Plt Count (150-450) k/uL MPV Neutrophils % % Lymphocytes % % Monocytes % % Eosinophils % % Basophils % % Neutrophils # (1.3-7.7) k/uL Lymphocytes # (1.0-4.8) k/uL Monocytes # (0-1.0) k/uL Eosinophils # (0-0.7) k/uL Basophils # (0-0.2) k/uL PT (9.0-12.0) sec INR (<1.2) Sodium 138 (137-145) mmol/L Potassium 3.8 (3.5-5.1) mmol/L Chloride 103 (98-107) mmol/L Carbon Dioxide 21 L (22-30) mmol/L Anion Gap 14 mmol/L BUN 5 L (7-17) mg/dL Creatinine 0.73 (0.52-1.04) mg/dL Est GFR (CKD-EPI)AfAm >90 (>60 ml/min/1.73 sqM) Est GFR (CKD-EPI)NonAf >90 (>60 ml/min/1.73 sqM) Glucose 83 (74-99) mg/dL Calcium 9.8 (8.4-10.2) mg/dL Total Bilirubin 0.3 (0.2-1.3) mg/dL AST 36 (14-36) U/L ALT 27 (4-34) U/L Alkaline Phosphatase 100 (38-126) U/L Total Protein 9.1 H (6.3-8.2) g/dL Albumin 5.0 (3.5-5.0) g/dL Urine Color Urine Appearance (Clear) Urine pH (5.0-8.0) Ur Specific [place] (1.001-1.035) Urine Protein (Negative) Urine Glucose (UA) (Negative) Urine Ketones (Negative) Urine Blood (Negative) Urine Nitrite (Negative) Urine Bilirubin (Negative) Urine Urobilinogen (<2.0) mg/dL Ur Leukocyte Esterase (Negative) Urine RBC (0-5) /hpf Urine WBC (0-5) /hpf Ur Squamous Epith Cells (0-4) /hpf Urine Bacteria (None) /hpf Hyaline Casts (0-2) /lpf Urine Mucus (None) /hpf Urine HCG, Qual Not Detected (Not Detectd) Disposition Clinical Impression: Abnormal vaginal bleeding, Abdominal pain Disposition: HOME SELF-CARE Condition: Stable Instructions (If sedation given, give patient instructions): Dysmenorrhea (ED) Additional Instructions: Please take the pain medications as directed. Follow-up with the primary care doctor in 2-4 days. Call and make an appointment with the HOSPITAL EDUCATOR. Return to the emergency room for any new or worsening symptoms Prescriptions: HYDROcodone/APAP 7.5-325MG [Superior 7.5-325] 1 tab PO Q4HR PRN #18 tab PRN Reason: Pain Is patient prescribed a controlled substance at d/c from ED?: Yes When asked, does pt state using other controlled substances?: No If prescribed controlled substance>3 days was MAPS reviewed?: Prescribed <3 Days Referrals: None,Stated [Primary Care Provider] - 1-2 days Eden Hernandez, [Doctor of Osteopathic Medicine] - 1-2 days Time of Disposition: 22:23
[2022-06-16 22:29] VITALS: BP 120/88; PULSE 80; RESP 18
== END 2022-06-16 22:39 | disposition home or self-care (01) ==
LOC: EC 19:06
DX: N93.9 Abnormal uterine and vaginal bleeding, unspecified (principal); F41.9 Anxiety disorder, unspecified
CPT/HCPCS: 36415; 80053; 85025; 85610; 81001; 81025; 76830; 99284; 96374; 96375 ×2; 96361; J2270; J1885; J1170

== ENCOUNTER 2022-06-26 17:56 | Emergency (ER) | payer OTHER ==
[2022-06-26] MEDS ORDERED: ONDANSETRON 4 MG/2 ML VIAL IVP STA (21:14)
[2022-06-26] MEDS ORDERED: MORPHINE SULFATE 4 MG/ML SYRINGE IVP STA (21:14)
--- NOTE | 2022-06-26 21:16 | ED ---
General Adult HPI - General Chief complaint: Abdominal Pain Stated complaint: abd pain Time Seen by Provider: 06/26/22 21:05 Source: patient Mode of arrival: ambulatory Limitations: no limitations - History of Present Illness Initial comments: Patient is a 37-year-old female presents to the emergency room with complaints of bilateral lower quadrant pain radiating to the right posterior region. She reports that she was here in the emergency room approximately 1 weeks ago with complaints of pelvic pain and vaginal bleeding with clots inconsistent with her regular cycles. Workup at that time included a pelvic or x-ray and ultrasound along with blood work. Findings were consistent with her dysmenorrhea showing free fluid in the pelvis no other acute findings were identified. She was discharged home with pain medication and advised to follow up with her CEMENT FINISHER HELPER. Unfortunately her pain is now radiating astated above. She has a past surgical history of section, appendectomy, and tubal ligation. She has a past medical history siginificant for ovarian cyst, endometriosis, kidney stones. She reports continued menorrhagia and dysmenorrhea at times but denies any dysuria or hematuria. She denies any urinary frequency, fevers, chills, diarrhea, nausea vomiting, chest pain or shortness of breath. She denies any other complaints or concerns this time. - Related Data Home Medications Medication Instructions Recorded Confirmed Butalb/Acetaminophen/Caffeine 1 - 2 tab PO Q6H PRN 02/08/22 02/08/22 [Fioricet 50-325-40] Propranolol [Inderal] 10 mg PO DAILY 02/08/22 02/08/22 buPROPion HCL [Wellbutrin SR] 100 mg PO DAILY 02/08/22 02/08/22 clonazePAM [KlonoPIN] 1 mg PO BID PRN 02/08/22 02/08/22 Previous Rx's Medication Instructions Recorded HYDROcodone/APAP 7.5-325MG [[place] 1 tab PO Q4HR PRN #18 tab 06/16/22 7.5-325] Allergies Allergy/AdvReac Type Severity Reaction Status Date / Time No Known Allergies Allergy Verified 06/26/22 19:18 Review of Systems ROS Statement: Those systems with pertinent positive or pertinent negative responses have been documented in the HPI. ROS Other: All systems not noted in ROS Statement are negative. Past Medical History Additional Past Medical History / Comment(s): kidney stones with stent, menorrhagia. History of Any Multi-Drug Resistant Organisms: None Reported Past Surgical History: Appendectomy, Section, Tonsillectomy, Tubal Ligation Additional Past Surgical History / Comment(s): ureter stent - been removed Past Anesthesia/Blood Transfusion Reactions: No Reported Reaction Past Psychological History: Anxiety Smoking Status: Never smoker Past Alcohol Use History: None Reported, Occasional Past Drug Use History: None Reported - Past Family History Mother Additional Family Medical History / Comment(s): hypotension, severe anxiety and severe depression, vertigo. CAD runs in mother's family Father Additional Family Medical History / Comment(s): "has a bad heart", back problems. CAD runs in father's family General Exam Limitations: no limitations General appearance: alert, in no apparent distress Head exam: Present: atraumatic, normocephalic, normal inspection Eye exam: Present: normal appearance, PERRL, EOMI. Absent: scleral icterus, conjunctival injection, periorbital swelling ENT exam: Present: normal exam, mucous membranes moist Neck exam: Present: normal inspection. Absent: tenderness, meningismus, lymphadenopathy Respiratory exam: Present: normal lung sounds bilaterally. Absent: respiratory distress, wheezes, rales, rhonchi, stridor Cardiovascular Exam: Present: regular rate, normal rhythm, normal heart sounds. Absent: systolic murmur, diastolic murmur, rubs, gallop, clicks GI/Abdominal exam: Present: soft, tenderness (Bilateral lower quadrant), normal bowel sounds. Absent: distended, guarding, rebound, rigid, organomegaly, mass Rectal exam: Present: deferred Extremities exam: Present: normal inspection, full ROM, normal capillary refill. Absent: tenderness, pedal edema, joint swelling, calf tenderness Back exam: Present: normal inspection. Absent: CVA tenderness (R), CVA tenderness (L) Neurological exam: Present: alert, oriented X3, CN II-XII intact Psychiatric exam: Present: normal affect, normal mood Skin exam: Present: warm, dry, intact, normal color. Absent: rash Course Vital Signs 06/26/22 06/26/22 19:18 23:32 Temperature 98.4 F 98 F Pulse Rate 84 79 Respiratory 16 18 Rate Blood Pressure 112/76 132/78 O2 Sat by Pulse 100 97 Oximetry Medical Decision Making - Medical Decision Making Patient is 37-year-old female who presents with bilateral lower quadrant pain with radiation into the right flank region without CVA tenderness and history of pelvic endometriosis, ovarian cyst and kidney stones. Recent workup approximately one week ago with ultrasound and x-ray will defer x-ray at this time and proceed with computed tomography scan to evaluate for renal stones along with other: Etiology patient has previously had an appendectomy so no concern for appendicitis. We will give morphine for pain along with Zofran she states she becomes nauseated from morphine. Will check CBC CMP amylase and lipase to evaluate for infectious process along with evaluate for dehydration and electrolyte derangement and GI organ inflammation. Plan responded well to morphine with continued pain. Discussed pain plan with patient patient agreeable to Tylenol 3 starter pack. Computed tomography scan exam negative without evidence of renal stones signs of bowel obstruction previously present pelvis phleboliths noted. No pelvic masses or free fluid in the pelvis. Will discharge home with Tylenol 3 starter pack and follow-up with her PRECINCT POLICE CAPTAIN along with primary care provider. Case discussed with Dr. Verdugo - Lab Data Result diagrams: 06/26/22 22:35 06/26/22 22:35 Lab Results 06/26/22 06/26/22 06/26/22 Range/Units 22:35 22:35 22:35 WBC 6.7 (3.8-10.6) k/uL RBC 4.46 (3.80-5.40) m/uL Hgb 13.9 (11.4-16.0) gm/dL Hct 43.7 (34.0-46.0) % MCV 98.0 (80.0-100.0) fL MCH 31.1 (25.0-35.0) pg MCHC 31.7 (31.0-37.0) g/dL RDW 13.5 (11.5-15.5) % Plt Count 208 (150-450) k/uL MPV 8.3 Neutrophils % 63 % Lymphocytes % 29 % Monocytes % 5 % Eosinophils % 2 % Basophils % 0 % Neutrophils # 4.2 (1.3-7.7) k/uL Lymphocytes # 1.9 (1.0-4.8) k/uL Monocytes # 0.3 (0-1.0) k/uL Eosinophils # 0.1 (0-0.7) k/uL Basophils # 0.0 (0-0.2) k/uL Sodium 136 L (137-145) mmol/L Potassium 4.5 (3.5-5.1) mmol/L Chloride 104 (98-107) mmol/L Carbon Dioxide 24 (22-30) mmol/L Anion Gap 8 mmol/L BUN 12 (7-17) mg/dL Creatinine 0.78 (0.52-1.04) mg/dL Est GFR (CKD-EPI)AfAm >90 (>60 ml/min/1.73 sqM) Est GFR (CKD-EPI)NonAf >90 (>60 ml/min/1.73 sqM) Glucose 81 (74-99) mg/dL Calcium 8.9 (8.4-10.2) mg/dL Total Bilirubin 0.5 (0.2-1.3) mg/dL AST 39 H (14-36) U/L ALT 33 (4-34) U/L Alkaline Phosphatase 89 (38-126) U/L Total Protein 7.7 (6.3-8.2) g/dL Albumin 4.2 (3.5-5.0) g/dL Amylase 61 (30-110) U/L Lipase 100 (23-300) U/L Urine Color Colorless Urine Appearance Cloudy H (Clear) Urine pH 6.0 (5.0-8.0) Ur Specific [place] 1.009 (1.001-1.035) Urine Protein Negative (Negative) Urine Glucose (UA) Negative (Negative) Urine Ketones Negative (Negative) Urine Blood Negative (Negative) Urine Nitrite Negative (Negative) Urine Bilirubin Negative (Negative) Urine Urobilinogen <2.0 (<2.0) mg/dL Ur Leukocyte Esterase Trace H (Negative) Urine RBC 2 (0-5) /hpf Urine WBC 4 (0-5) /hpf Ur Squamous Epith Cells 11 H (0-4) /hpf Urine Bacteria Rare H (None) /hpf Urine Mucus Rare H (None) /hpf Disposition Clinical Impression: Lower abdominal pain Disposition: HOME SELF-CARE Condition: Stable Instructions (If sedation given, give patient instructions): Dysmenorrhea (ED), Abdominal Pain (ED) Additional Instructions: Please utilize Tylenol 3 starter pack for pain as needed. Please follow-up with PRECINCT POLICE CAPTAIN as previously advised during hospital stay. Please return to the Emergency Department if symptoms worsen or any other concerns. Is patient prescribed a controlled substance at d/c from ED?: No Referrals: None,Stated [Primary Care Provider] - 1-2 days Time of Disposition: 23:24
--- NOTE | 2022-06-26 21:58 | CT ---
EXAMINATION TYPE: CT abdomen pelvis wo con DATE OF EXAM: 06/26/2022 COMPARISON: 02/08/2022 HISTORY: abdominal and flank pain CT DLP: 390.9 mGycm Automated exposure control for dose reduction was used. Images obtained from the diaphragm to the floor the pelvis with no contrast. Lung bases are clear. No pleural effusion. Heart size is normal. No pericardial effusion. Liver spleen stomach pancreas gallbladder appear intact. The bile ducts are not dilated. There is no adrenal mass. Kidneys have normal size and contour. Ureters are not dilated. There is no hydronephrosis. There are clips apparently from appendectomy. Bladder distends smoothly. No inguinal hernia. No free fluid in the pelvis. Uterus is anteverted. No pelvic mass. Lumbar vertebra have normal spacing and alignment. Posterior elements are intact. Facet joints are in tact. Bony pelvis is intact. There is no mesenteric edema. No ascites or free air. No sign of bowel obstruction. There are phlebol iths in the pelvis. No evidence of ureteral calculus. IMPRESSION: Negative exam. No evidence of renal stone or obstruction. No adverse change compared to old exam.
[2022-06-26] MEDS ORDERED: ACET/COD 300 MG/30 MG STARTER PACK 6 TAB BTL PO STA (22:39)
[2022-06-26 23:05] LABS: ALT 33 U/L (4-34); AST 39 U/L (14-36); African American GFR (CKD) >90 (>60 ml/min/1.73 sqM); Albumin 4.2 g/dL (3.5-5.0); Alkaline Phosphatase 89 U/L (38-126); Amylase 61 U/L (30-110); Anion Gap 8 mmol/L; Blood Urea Nitrogen 12 mg/dL (7-17); Calcium 8.9 mg/dL (8.4-10.2); Carbon Dioxide 24 mmol/L (22-30); Chloride 104 mmol/L (98-107); Glucose 81 mg/dL (74-99); Lipase 100 U/L (23-300); Non-African American GFR(CKD) >90 (>60 ml/min/1.73 sqM); Sodium 136 mmol/L (137-145); Total Bilirubin 0.5 mg/dL (0.2-1.3); Total Protein 7.7 g/dL (6.3-8.2)
[2022-06-26 23:16] LABS: Potassium 4.5 mmol/L (3.5-5.1)
[2022-06-26 23:20] LABS: Basophils % (A) 0 %; Eosinophils # (A) 0.1 k/uL (0-0.7); Eosinophils % (A) 2 %; HCT 43.7 % (34.0-46.0); HGB 13.9 gm/dL (11.4-16.0); Lymphocytes # (A) 1.9 k/uL (1.0-4.8); Lymphocytes % (A) 29 %; MCH 31.1 pg (25.0-35.0); MCHC 31.7 g/dL (31.0-37.0); Mean Platelet Volume 8.3; Monocytes # (A) 0.3 k/uL (0-1.0); Monocytes % (A) 5 %; Neutrophils # (A) 4.2 k/uL (1.3-7.7); Neutrophils % (A) 63 %; Platelet Count 208 k/uL (150-450); RBC 4.46 m/uL (3.80-5.40); RDW 13.5 % (11.5-15.5); WBC 6.7 k/uL (3.8-10.6)
[2022-06-26 23:24] LABS: Appearance,Urine Cloudy (Clear); Bacteria,Urine Rare /hpf; Bilirubin,Urine Negative (Negative); Blood,Urine Negative (Negative); Color,Urine Colorless; Glucose,Urine (UA) Negative (Negative); Ketones,Urine Negative (Negative); Leukocyte Esterase,Urine Trace (Negative); Mucus,Urine Rare /hpf; Nitrite,Urine Negative (Negative); Protein,Urine Negative (Negative); RBC,Urine 2 /hpf (0-5); Specific Gravity,Urine 1.009 (1.001-1.035); Squamous Epithelial Cell,Urine 11 /hpf (0-4); Urobilinogen,Urine <2.0 mg/dL (<2.0); WBC,Urine 4 /hpf (0-5)
[2022-06-26 23:33] VITALS: BP 132/78; PULSE 79; RESP 18; TEMP 98
== END 2022-06-26 23:33 | disposition home or self-care (01) ==
LOC: EC 17:56
DX: R10.31 Right lower quadrant pain (principal); R10.32 Left lower quadrant pain; Z87.442 Personal history of urinary calculi
CPT/HCPCS: 36415; 80053; 82150; 83690; 85025; 81001; 74176; 99284; 96374; 96375; J2270; J2405

== ENCOUNTER 2022-09-19 12:18 | Emergency (ER) | payer OTHER ==
[2022-09-19 12:22] VITALS: TEMP 97.9
[2022-09-19 13:21] LABS: Basophils % (A) 0 %; Eosinophils % (A) 1 %; HGB 14.1 gm/dL (11.4-16.0); Lymphocytes # (A) 1.3 k/uL (1.0-4.8); Lymphocytes % (A) 26 %; MCH 32.1 pg (25.0-35.0); MCHC 34.5 g/dL (31.0-37.0); Mean Platelet Volume 7.4; Monocytes # (A) 0.2 k/uL (0-1.0); Monocytes % (A) 4 %; Neutrophils # (A) 3.5 k/uL (1.3-7.7); Neutrophils % (A) 68 %; Platelet Count 249 k/uL (150-450); RBC 4.41 m/uL (3.80-5.40); RDW 12.3 % (11.5-15.5); WBC 5.1 k/uL (3.8-10.6)
[2022-09-19 13:34] LABS: ALT 59 U/L (4-34); AST 48 U/L (14-36); African American GFR (CKD) >90 (>60 ml/min/1.73 sqM); Albumin 4.9 g/dL (3.5-5.0); Alkaline Phosphatase 68 U/L (38-126); Amylase 67 U/L (30-110); Anion Gap 14 mmol/L; Blood Urea Nitrogen 5 mg/dL (7-17); Calcium 9.3 mg/dL (8.4-10.2); Carbon Dioxide 20 mmol/L (22-30); Chloride 104 mmol/L (98-107); Glucose 87 mg/dL (74-99); Lipase 77 U/L (23-300); Non-African American GFR(CKD) >90 (>60 ml/min/1.73 sqM); Sodium 138 mmol/L (137-145); Total Bilirubin 0.5 mg/dL (0.2-1.3); Total Protein 8.1 g/dL (6.3-8.2)
[2022-09-19 13:37] LABS: Amorphous Sediment,Urine Rare /hpf; Appearance,Urine Clear (Clear); Bilirubin,Urine Negative (Negative); Blood,Urine Moderate (Negative); Color,Urine Colorless; Glucose,Urine (UA) Negative (Negative); Ketones,Urine 1+ (Negative); Leukocyte Esterase,Urine Moderate (Negative); Nitrite,Urine Negative (Negative); PH, Urine 5.5 (5.0-8.0); Protein,Urine Negative (Negative); RBC,Urine <1 /hpf (0-5); Specific Gravity,Urine 1.002 (1.001-1.035); Squamous Epithelial Cell,Urine 1 /hpf (0-4); Urobilinogen,Urine <2.0 mg/dL (<2.0); WBC,Urine <1 /hpf (0-5)
[2022-09-19] MEDS ORDERED: MORPHINE SULFATE 4 MG/ML SYRINGE IV STA (13:37)
[2022-09-19] MEDS ORDERED: SODIUM CHLORIDE 0.9% 1,000 ML IV ONE (13:37)
--- NOTE | 2022-09-19 13:56 | XR ---
EXAMINATION TYPE: XR KUB DATE OF EXAM: 09/19/2022 COMPARISON: CT abdomen pelvis 06/26/2022 HISTORY: Abdominal pain TECHNIQUE: Upright KUB of the abdomen is obtained with 2 radiographs. FINDINGS: Small bowel demonstrates no evidence for dilatation or air fluid levels. Gas and fecal material is seen in non-distended colon. No convincing evidence for pneumoperitoneum. Surgical clips in the right pelvis. Multiple pelvic phleboliths identified. No definitive calcificati ons overlying the kidneys. The lung bases are clear. The osseous structures are intact. IMPRESSION: Overall nonobstructive bowel gas pattern.
--- NOTE | 2022-09-19 14:51 | CT ---
EXAMINATION TYPE: CT abdomen pelvis wo con DATE OF EXAM: 09/19/2022 COMPARISON: 06/26/2022 HISTORY: 37-year-old female Lower pelvic pain-bilaterally CT DLP: 351.1 mGycm. Automated exposure control for dose reduction was used. TECHNIQUE: Contiguous axial scanning of the abdomen and pelvis without IV contrast. Coronal and sagit floyd reconstructions performed. FINDINGS: Heart normal size without pericardial effusion. Lung bases clear without pleural effusion. There is a stable 7 mm hypodensity inferior right liver lobe suggesting a benign cyst. Otherwise, non contrast appearance of the liver, gallbladder, adrenal glands, spleen with hilar splenules, and pancr eas show no gross abnormality. Assessment limited due to lack of IV contrast. No nephrolithiasis or yaron hydronephrosis. No dilated small bowel, free fluid, or free air. No mesenteric or retroperitoneal lymphadenopathy see n. Surgical interior right lower quadrant suggesting prior appendectomy. Mild scattered colonic divertic ulosis. No significant stool burden or pericolonic inflammatory change. Bladder is urine distended. Slightly bulky, anteverted uterus. There are numerous pelvic phleboliths. Both ovaries are visualized. No abnormal fluid collection in the pelvis or pelvic lymphadenopathy. Bones: Mild facet degenerative change lower lumbar spine. No osseous destructive process. IMPRESSION: 1. Mild scattered colonic diverticulosis without evidence for acute diverticulitis. Surgical materia l in the right lower quadrant suggesting prior appendectomy. 2. Slightly bulky appearance to the uterus. If more detailed assessment is desired and patient's amelie n may have an BOOK COVERER etiology, pelvic ultrasound can be considered. 3. Otherwise, no acute inflammatory process identified in the abdomen or pelvis to explain the patie nt's symptoms.
--- NOTE | 2022-09-19 15:11 | ED ---
Abdominal Pain HPI - General Source: patient Mode of arrival: ambulatory Limitations: no limitations - History of Present Illness MD Complaint: abdominal pain Onset/Timin -: hour(s) Location: LLQ, RLQ Radiation: none Migration to: no migration Severity: severe Quality: aching Consistency: constant Improves With: other (Position) Worsens With: nothing Associated Symptoms: nausea <Jose Ledesma - Last Filed: 09/19/22 15:18> <Major Kelley - Last Filed: 09/19/22 17:46> - General Chief Complaint: Abdominal Pain Stated Complaint: abd pain Time Seen by Provider: 09/19/22 12:26 - History of Present Illness Initial Comments: This patient is a 37-year-old woman who presents to have evaluation for pelvic pain. She states the pains of been going on for over 2 months. She has been seen a number of times and has followed up with her home energy consultant who is going to perform some sort of procedure but that is not for number weeks yet. She states that the pain was worse today, starting around 0200. The pain is all across the low abdomen but may be worse on the left side. She also is having some nausea earlier. She had checked and earlier today but had to leave and now returns to have evaluation and see if she can have some relief from the pain. She has not noted fever or chills. No change in bowel movements or urination. (Jose Ledesma) - Related Data Home Medications Medication Instructions Recorded Confirmed Butalb/Acetaminophen/Caffeine 1 tab PO Q6H PRN 02/08/22 09/19/22 [Fioricet 50-325-40] Propranolol [Inderal] 10 mg PO DAILY 02/08/22 09/19/22 clonazePAM [KlonoPIN] 1 mg PO BID PRN 02/08/22 09/19/22 Famotidine [Pepcid] 20 mg PO BID 09/19/22 09/19/22 Ferrous Sulfate [Feosol] 325 mg PO DAILY 09/19/22 09/19/22 Ibuprofen [Motrin] 600 mg PO Q8HR PRN 09/19/22 09/19/22 Omeprazole [PriLOSEC] 20 mg PO DAILY 09/19/22 09/19/22 Ondansetron Odt [Zofran Odt] 8 mg PO Q8HR PRN 09/19/22 09/19/22 Topamax (Unknown Strength) 1 dose PO DAILY 09/19/22 09/19/22 medroxyPROGESTERone [Depo-Provera] 150 mg IM Q90D 09/19/22 09/19/22 Allergies Allergy/AdvReac Type Severity Reaction Status Date / Time No Known Allergies Allergy Verified 09/19/22 14:17 Review of Systems ROS Other: All systems not noted in ROS Statement are negative. Constitutional: Denies: fever, chills Respiratory: Denies: cough, dyspnea Cardiovascular: Denies: chest pain, palpitations Gastrointestinal: Reports: abdominal pain, nausea. Denies: vomiting, diarrhea, constipation Genitourinary: Denies: dysuria, hematuria Musculoskeletal: Denies: back pain Skin: Denies: rash Neurological: Denies: headache, weakness <Jose Ledesma - Last Filed: 09/19/22 15:18> ROS Other: All systems not noted in ROS Statement are negative. <Major Kelley - Last Filed: 09/19/22 17:46> ROS Statement: Those systems with pertinent positive or pertinent negative responses have been documented in the HPI. Past Medical History Additional Past Medical History / Comment(s): kidney stones with stent, menorrhagia. History of Any Multi-Drug Resistant Organisms: None Reported Past Surgical History: Appendectomy, Section, Tonsillectomy, Tubal Ligation Additional Past Surgical History / Comment(s): ureter stent - been removed Past Anesthesia/Blood Transfusion Reactions: No Reported Reaction Past Psychological History: Anxiety Smoking Status: Never smoker Past Alcohol Use History: None Reported, Occasional Past Drug Use History: None Reported - Past Family History Mother Additional Family Medical History / Comment(s): hypotension, severe anxiety and severe depression, vertigo. CAD runs in mother's family Father Additional Family Medical History / Comment(s): "has a bad heart", back problems. CAD runs in father's family <Jose Ledesma - Last Filed: 09/19/22 15:18> General Exam Limitations: no limitations General appearance: alert, in no apparent distress Head exam: Present: atraumatic, normocephalic Eye exam: Present: normal appearance. Absent: scleral icterus, conjunctival injection Respiratory exam: Present: normal lung sounds bilaterally. Absent: respiratory distress, wheezes, rales, rhonchi, stridor Cardiovascular Exam: Present: regular rate, normal rhythm, normal heart sounds. Absent: systolic murmur, diastolic murmur, rubs, gallop GI/Abdominal exam: Present: soft, tenderness (There is bilateral lower quadrant tenderness without rebound or guarding), normal bowel sounds. Absent: distended, guarding, rebound, rigid, mass, pulsatile mass, hernia Extremities exam: Present: normal inspection, normal capillary refill. Absent: pedal edema, calf tenderness Back exam: Present: normal inspection. Absent: CVA tenderness (R), CVA tenderness (L) Neurological exam: Present: alert Skin exam: Present: warm, dry, intact, normal color. Absent: rash <Jose Ledesma - Last Filed: 09/19/22 15:18> Course Vital Signs 09/19/22 09/19/22 12:20 13:55 Temperature 97.9 F Pulse Rate 140 H 120 H Respiratory 22 18 Rate Blood Pressure 154/68 149/68 O2 Sat by Pulse 99 100 Oximetry Medical Decision Making - Lab Data Result diagrams: 09/19/22 13:03 09/19/22 13:03 <Jose Ledesma - Last Filed: 09/19/22 15:18> - Lab Data Result diagrams: 09/19/22 13:03 09/19/22 13:03 <Major Kelley - Last Filed: 09/19/22 17:46> - Medical Decision Making Patient presented to me by previous shift physician, Dr. Bright. Briefly, patient is a 37-year-old female presents emergency Department with acute on chronic abdominal pain. Patient does have established care trying to resolve this on outpatient basis. Patient acutely worsened today. Last was to follow- up with pending ultrasound. Computed tomography scan abdomen and pelvis, KUB was obtained showing no acute process. CBC, metabolic panel is unremarkable except for some lactacidosis 3.1. Urinalysis is negative. Patient reevaluated at bedside at 5:45 PM. Her ultrasound results were reviewed and found to be unremarkable. Repeat lactic acid level is normal. Patient is well-appearing and symptoms are significantly improved. Patient be discharge. Advised follow-up with her BLIND AIDE. (Major Kelley) - Lab Data Lab Results 09/19/22 09/19/22 09/19/22 Range/Units 13:03 13:03 13:03 WBC 5.1 (3.8-10.6) k/uL RBC 4.41 (3.80-5.40) m/uL Hgb 14.1 (11.4-16.0) gm/dL Hct 41.0 (34.0-46.0) % MCV 93.0 (80.0-100.0) fL MCH 32.1 (25.0-35.0) pg MCHC 34.5 (31.0-37.0) g/dL RDW 12.3 (11.5-15.5) % Plt Count 249 (150-450) k/uL MPV 7.4 Neutrophils % 68 % Lymphocytes % 26 % Monocytes % 4 % Eosinophils % 1 % Basophils % 0 % Neutrophils # 3.5 (1.3-7.7) k/uL Lymphocytes # 1.3 (1.0-4.8) k/uL Monocytes # 0.2 (0-1.0) k/uL Eosinophils # 0.0 (0-0.7) k/uL Basophils # 0.0 (0-0.2) k/uL Sodium (137-145) mmol/L Potassium (3.5-5.1) mmol/L Chloride (98-107) mmol/L Carbon Dioxide (22-30) mmol/L Anion Gap mmol/L BUN (7-17) mg/dL Creatinine (0.52-1.04) mg/dL Est GFR (CKD-EPI)AfAm (>60 ml/min/1.73 sqM) Est GFR (CKD-EPI)NonAf (>60 ml/min/1.73 sqM) Glucose (74-99) mg/dL Lactic Ac Sepsis Rflx Plasma Lactic Acid Jacob (0.7-2.0) mmol/L Calcium (8.4-10.2) mg/dL Total Bilirubin (0.2-1.3) mg/dL AST (14-36) U/L ALT (4-34) U/L Alkaline Phosphatase (38-126) U/L Total Protein (6.3-8.2) g/dL Albumin (3.5-5.0) g/dL Amylase (30-110) U/L Lipase (23-300) U/L Urine Color Colorless Urine Appearance Clear (Clear) Urine pH 5.5 (5.0-8.0) Ur Specific [place] 1.002 (1.001-1.035) Urine Protein Negative (Negative) Urine Glucose (UA) Negative (Negative) Urine Ketones 1+ H (Negative) Urine Blood Moderate H (Negative) Urine Nitrite Negative (Negative) Urine Bilirubin Negative (Negative) Urine Urobilinogen <2.0 (<2.0) mg/dL Ur Leukocyte Esterase Moderate H (Negative) Urine RBC <1 (0-5) /hpf Urine WBC <1 (0-5) /hpf Ur Squamous Epith Cells 1 (0-4) /hpf Amorphous Sediment Rare H (None) /hpf Urine HCG, Qual Not Detected (Not Detectd) 09/19/22 09/19/22 09/19/22 Range/Units 13:03 13:03 13:36 WBC (3.8-10.6) k/uL RBC (3.80-5.40) m/uL Hgb (11.4-16.0) gm/dL Hct (34.0-46.0) % MCV (80.0-100.0) fL MCH (25.0-35.0) pg MCHC (31.0-37.0) g/dL RDW (11.5-15.5) % Plt Count (150-450) k/uL MPV Neutrophils % % Lymphocytes % % Monocytes % % Eosinophils % % Basophils % % Neutrophils # (1.3-7.7) k/uL Lymphocytes # (1.0-4.8) k/uL Monocytes # (0-1.0) k/uL Eosinophils # (0-0.7) k/uL Basophils # (0-0.2) k/uL Sodium 138 (137-145) mmol/L Potassium 4.0 (3.5-5.1) mmol/L Chloride 104 (98-107) mmol/L Carbon Dioxide 20 L (22-30) mmol/L Anion Gap 14 mmol/L BUN 5 L (7-17) mg/dL Creatinine 0.60 (0.52-1.04) mg/dL Est GFR (CKD-EPI)AfAm >90 (>60 ml/min/1.73 sqM) Est GFR (CKD-EPI)NonAf >90 (>60 ml/min/1.73 sqM) Glucose 87 (74-99) mg/dL Lactic Ac Sepsis Rflx Y Plasma Lactic Acid Jacob 3.1 H* (0.7-2.0) mmol/L Calcium 9.3 (8.4-10.2) mg/dL Total Bilirubin 0.5 (0.2-1.3) mg/dL AST 48 H (14-36) U/L ALT 59 H (4-34) U/L Alkaline Phosphatase 68 (38-126) U/L Total Protein 8.1 (6.3-8.2) g/dL Albumin 4.9 (3.5-5.0) g/dL Amylase 67 (30-110) U/L Lipase 77 (23-300) U/L Urine Color Urine Appearance (Clear) Urine pH (5.0-8.0) Ur Specific [place] (1.001-1.035) Urine Protein (Negative) Urine Glucose (UA) (Negative) Urine Ketones (Negative) Urine Blood (Negative) Urine Nitrite (Negative) Urine Bilirubin (Negative) Urine Urobilinogen (<2.0) mg/dL Ur Leukocyte Esterase (Negative) Urine RBC (0-5) /hpf Urine WBC (0-5) /hpf Ur Squamous Epith Cells (0-4) /hpf Amorphous Sediment (None) /hpf Urine HCG, Qual (Not Detectd) 09/19/22 Range/Units 17:15 WBC (3.8-10.6) k/uL RBC (3.80-5.40) m/uL Hgb (11.4-16.0) gm/dL Hct (34.0-46.0) % MCV (80.0-100.0) fL MCH (25.0-35.0) pg MCHC (31.0-37.0) g/dL RDW (11.5-15.5) % Plt Count (150-450) k/uL MPV Neutrophils % % Lymphocytes % % Monocytes % % Eosinophils % % Basophils % % Neutrophils # (1.3-7.7) k/uL Lymphocytes # (1.0-4.8) k/uL Monocytes # (0-1.0) k/uL Eosinophils # (0-0.7) k/uL Basophils # (0-0.2) k/uL Sodium (137-145) mmol/L Potassium (3.5-5.1) mmol/L Chloride (98-107) mmol/L Carbon Dioxide (22-30) mmol/L Anion Gap mmol/L BUN (7-17) mg/dL Creatinine (0.52-1.04) mg/dL Est GFR (CKD-EPI)AfAm (>60 ml/min/1.73 sqM) Est GFR (CKD-EPI)NonAf (>60 ml/min/1.73 sqM) Glucose (74-99) mg/dL Lactic Ac Sepsis Rflx Plasma Lactic Acid Jacob 1.1 (0.7-2.0) mmol/L Calcium (8.4-10.2) mg/dL Total Bilirubin (0.2-1.3) mg/dL AST (14-36) U/L ALT (4-34) U/L Alkaline Phosphatase (38-126) U/L Total Protein (6.3-8.2) g/dL Albumin (3.5-5.0) g/dL Amylase (30-110) U/L Lipase (23-300) U/L Urine Color Urine Appearance (Clear) Urine pH (5.0-8.0) Ur Specific [place] (1.001-1.035) Urine Protein (Negative) Urine Glucose (UA) (Negative) Urine Ketones (Negative) Urine Blood (Negative) Urine Nitrite (Negative) Urine Bilirubin (Negative) Urine Urobilinogen (<2.0) mg/dL Ur Leukocyte Esterase (Negative) Urine RBC (0-5) /hpf Urine WBC (0-5) /hpf Ur Squamous Epith Cells (0-4) /hpf Amorphous Sediment (None) /hpf Urine HCG, Qual (Not Detectd) Disposition Is patient prescribed a controlled substance at d/c from ED?: No <Jose Ledesma - Last Filed: 09/19/22 15:18> Is patient prescribed a controlled substance at d/c from ED?: No Time of Disposition: 17:46 <Major Kelley - Last Filed: 09/19/22 17:46> Clinical Impression: Abdominal pain Disposition: HOME SELF-CARE Condition: Good Instructions (If sedation given, give patient instructions): Abdominal Pain (ED) Referrals: Nonstaff,Physician [Primary Care Provider] - 1-2 days Jonathan Rojas DO [REFERRING] - 1-2 days
[2022-09-19] MEDS ORDERED: HYDROmorphone 0.5 MG/0.5 ML SYRINGE IVP STA (15:18)
--- NOTE | 2022-09-19 16:14 | US ---
EXAMINATION TYPE: US transvaginal DATE OF EXAM: 09/19/2022 COMPARISON: Same day CT CLINICAL HISTORY: LLQ pain. Possible torsion. Pt states abnormal vaginal bleeding TECHNIQUE: Transvaginal (TV). Transvaginal sonographic images of the pelvis were acquired. Date of LMP: Pt states bleeding x 50+ days EXAM MEASUREMENTS: Uterus: 8.4 x 5.2 x 5.1 cm Endometrial Stripe: 0.6 cm Right Ovary: 2.3 x 1.6 x 2.1 cm Left Ovary: 3.3 x 1.7 x 1.8 cm 1. Uterus: Retroverted Appeared wnl 2. Endometrium: Appeared wnl 3. Right Ovary: wnl 4. Left Ovary: wnl Spectral, color and waveform doppler imaging shows good arterial and venous flow within the ovaries ; there is no evidence for ovarian torsion. 5. Bilateral Adnexa: wnl 6. Posterior cul-de-sac: wnl IMPRESSION: No ultrasound evidence of an acute pelvic process.
[2022-09-19 17:56] VITALS: BP 135/94; PULSE 97; RESP 16
== END 2022-09-19 17:55 | disposition home or self-care (01) ==
LOC: EC 12:18
DX: R10.9 Unspecified abdominal pain (principal); F41.9 Anxiety disorder, unspecified; Z79.899 Other long term (current) drug therapy
CPT/HCPCS: 36415; 80053; 82150; 83605; 83690; 85025; 81001; 81025; 74018; 93975; 76830; 74176; 99284; 96374; 96375; 96361 ×4; J2270; J1170

== ENCOUNTER 2022-11-27 11:34 | Emergency (ER) | payer OTHER ==
[2022-11-27 11:49] VITALS: RESP 20
--- NOTE | 2022-11-27 11:50 | ED ---
General Adult HPI - General Source: patient, RN notes reviewed Mode of arrival: ambulatory Limitations: no limitations <Vincent Torres - Last Filed: 11/27/22 11:49> <Matthew Garber - Last Filed: 11/27/22 14:35> - General Stated complaint: fever Time Seen by Provider: 11/27/22 11:49 - History of Present Illness Initial comments: 37-year-old female presents emergency Department chief complaint of fever cough congestion body. Patient states symptoms started last night. Patient's parents have been sick with some her symptoms were not tested for covid 19 or flu. Patient denies any GI symptoms she states her chest hurts when she coughs. Patient has no prior lung disease no prior cardiac disease (Vincent Torres) - Related Data Home Medications Medication Instructions Recorded Confirmed Butalb/Acetaminophen/Caffeine 1 tab PO Q6H PRN 02/08/22 09/19/22 [Fioricet 50-325-40] Propranolol [Inderal] 10 mg PO DAILY 02/08/22 09/19/22 clonazePAM [KlonoPIN] 1 mg PO BID PRN 02/08/22 09/19/22 Famotidine [Pepcid] 20 mg PO BID 09/19/22 09/19/22 Ferrous Sulfate [Feosol] 325 mg PO DAILY 09/19/22 09/19/22 Ibuprofen [Motrin] 600 mg PO Q8HR PRN 09/19/22 09/19/22 Omeprazole [PriLOSEC] 20 mg PO DAILY 09/19/22 09/19/22 Ondansetron Odt [Zofran Odt] 8 mg PO Q8HR PRN 09/19/22 09/19/22 Topamax (Unknown Strength) 1 dose PO DAILY 09/19/22 09/19/22 medroxyPROGESTERone [Depo-Provera] 150 mg IM Q90D 09/19/22 09/19/22 Previous Rx's Medication Instructions Recorded Oseltamivir [Tamiflu] 75 mg PO Q12HR #10 cap 11/27/22 Allergies Allergy/AdvReac Type Severity Reaction Status Date / Time No Known Allergies Allergy Verified 11/27/22 11:49 Review of Systems ROS Other: All systems not noted in ROS Statement are negative. <Vincent Torres - Last Filed: 11/27/22 11:49> ROS Other: All systems not noted in ROS Statement are negative. <Matthew Garber Last Filed: 11/27/22 14:35> ROS Statement: Those systems with pertinent positive or pertinent negative responses have been documented in the HPI. Past Medical History Additional Past Medical History / Comment(s): kidney stones with stent, menorrhagia. History of Any Multi-Drug Resistant Organisms: None Reported Past Surgical History: Appendectomy, Section, Tonsillectomy, Tubal Ligation Additional Past Surgical History / Comment(s): ureter stent - been removed Past Anesthesia/Blood Transfusion Reactions: No Reported Reaction Past Psychological History: Anxiety Smoking Status: Never smoker Past Alcohol Use History: None Reported, Occasional Past Drug Use History: None Reported - Past Family History Mother Additional Family Medical History / Comment(s): hypotension, severe anxiety and severe depression, vertigo. CAD runs in mother's family Father Additional Family Medical History / Comment(s): "has a bad heart", back problems. CAD runs in father's family <Vincent Torres M - Last Filed: 11/27/22 11:49> General Exam Limitations: no limitations <Vincent Torres M - Last Filed: 11/27/22 11:49> General appearance: alert, in no apparent distress Head exam: Present: atraumatic Eye exam: Present: normal appearance. Absent: scleral icterus, conjunctival injection, periorbital swelling, periorbital tenderness ENT exam: Present: mucous membranes moist Expanded Mouth exam: Present: tongue normal, tongue elevation. Absent: drooling, trismus, muffled voice Throat exam: other (patient sucking on red throat drop). negative: tonsillar exudate, R peritonsillar mass, L peritonsillar mass Neck exam: Present: full ROM. Absent: tenderness, meningismus, lymphadenopathy Respiratory exam: Present: normal lung sounds bilaterally. Absent: respiratory distress, accessory muscle use Cardiovascular Exam: Present: tachycardia GI/Abdominal exam: Present: soft. Absent: rigid Extremities exam: Present: normal capillary refill. Absent: pedal edema Neurological exam: Present: alert, oriented X3 Psychiatric exam: Present: normal affect, normal mood Skin exam: Present: warm, dry, normal color. Absent: cyanosis, diaphoretic, petechiae, pallor <Riske,Matthew - Last Filed: 11/27/22 14:35> Course Vital Signs 11/27/22 11/27/22 11/27/22 11:46 14:00 14:28 Temperature 100.3 F H 102.7 F H Pulse Rate 111 H 104 H Respiratory 20 20 20 Rate Blood Pressure 103/62 107/64 O2 Sat by Pulse 99 100 Oximetry Medical Decision Making <Matthew Garber - Last Filed: 11/27/22 14:35> - Medical Decision Making Patient presents with sore throat that started last night, woke up this morning with body aches cough and sore throat. Did take Tylenol prior to arrival. She is a nonsmoker. She is positive for influenza a. She was given a shot of Toradol and Zofran for nausea. Decadron for pharyngitis. Prescribed Tamiflu as symptoms started yesterday. She will be discharged home directed to increase her fluid intake. Tylenol and Motrin as needed for any discomfort or fevers. Dr Kelley Was pt. sent in by a medical professional or institution? @No Did you speak to anyone other than the patient for history? @No Did you review nursing and triage notes? @Yes I agree Were old charts reviewed? @No Differential Diagnosis? @ MDM Differential Fever: Pneumonia, viral URI, endocarditis, myocarditis, pericarditis, otitis, sinusit is, peritonsillar Abscess, retropharyngeal Abscess, epiglottitis, peritonitis, appendicitis, Ana cystitis, diverticulitis, hepatitis, colitis, UTI, PID, TOA, pyelonephritis, prostatitis, epididymitis, meningitis, encephalitis, pulmonary embolism, CVA, thyroid storm, pancreatitis, adrenal crisis, cavernous sinus thrombosis this is not meant to be an all-inclusive list. EKG interpreted by me (3pts min.)? @ [none] X-rays interpreted by me (1pt min.)? @X-ray interpreted by me shows no evidence of consolidation, trachea midline. No evidence of free air. Radiologist's interpretation no acute cardiopulmonary process. CT interpreted by me (1pt min.)? @ [none] U/S interpreted by me (1pt. min.)? @ [none] What testing was considered but not performed? (CT, X-rays, U/S, labs)? Why? @None What meds were considered but not given? Why? @ Antibiotics were considered if this was a pneumonia however patient has influenza. Did you discuss the management of the patient with other professionals? @No Did you reconcile home meds? @No Was smoking cessation discussed for >3mins.? @Nonsmoker Was critical care preformed (if so, how long)? @No Were there social determinants of health that impacted care today? How? (Homelessness, low income, unemployed, alcoholism, drug addiction, transportation, low edu. Level, literacy, decrease access to med. care, [facility], rehab)? @ none Was there de-escalation of care discussed even if they declined? (Discuss DNR or withdrawal of care, Hospice)? @No What co-morbidities impacted this encounter? (DM, HTN, Smoking, COPD, CAD, Cancer, CVA, Hep., AIDS, mental health diagnosis, sleep apnea, morbid obesity)? @None Was patient admitted / discharged? @Discharged Undiagnosed new problem with uncertain prognosis? @ [none] Drug Therapy requiring intensive monitoring for toxicity (Heparin, Nitro, Insulin, Cardizem)? @No Were any procedures done? @No Diagnosis/symptom? @Influenza Acute, or Chronic, or Acute on Chronic? @Acute Uncomplicated (without systemic symptoms) or Complicated (systemic symptoms)? @Uncomplicated Side effects of treatment? @ [none] Exacerbation, Progression, or Severe Exacerbation] @ [no] Poses a threat to life or bodily function? @ [no] (Matthew Garber) - Lab Data Lab Results 11/27/22 Range/Units 11:50 Influenza Type A (PCR) Detected A (Not Detectd) Influenza Type B (PCR) Not Detected (Not Detectd) RSV (PCR) Not Detected (Not Detectd) SARS-CoV-2 (PCR) Not Detected (Not Detectd) Disposition <Vincent Torres - Last Filed: 11/27/22 11:49> Is patient prescribed a controlled substance at d/c from ED?: No Time of Disposition: 14:04 <Matthew Garber - Last Filed: 11/27/22 14:35> Clinical Impression: Influenza Disposition: HOME SELF-CARE Condition: Good Instructions (If sedation given, give patient instructions): Influenza (ED) Additional Instructions: Increase your fluid intake as dehydration will worsen your body aches and symptoms. Take Tamiflu as prescribed. Tylenol and Motrin for any body aches or fevers. Vitamin C, vitamin D and zinc daily to improve immune health. Return to the emergency room with any new or concerning symptoms. Prescriptions: Oseltamivir [Tamiflu] 75 mg PO Q12HR #10 cap Referrals: Nonstaff,Physician [Primary Care Provider] - 1-2 days
[2022-11-27] MEDS ORDERED: ONDANSETRON ODT 4 MG TAB PO STA (13:45)
[2022-11-27] MEDS ORDERED: KETOROLAC 15 MG/ML 1 ML VIAL IM STA (13:45)
--- NOTE | 2022-11-27 14:02 | XR ---
EXAMINATION TYPE: XR chest 2V DATE OF EXAM: 11/27/2022 COMPARISON: None HISTORY: 37-year-old female with cough TECHNIQUE: PA and lateral views FINDINGS: Heart normal size. Aorta and pulmonary vasculature within normal limits. Some strandy atelectasis at the left base. No consolidation or pleural effusion. IMPRESSION: No acute cardiopulmonary process.
[2022-11-27] MEDS ORDERED: DEXAMETHASONE SOD PHOSPHATE 10 MG/ML 1 ML VIAL IM STA (14:08)
[2022-11-27] MEDS ORDERED: ONDANSETRON 4 MG ODT STARTER PACK 2 TAB BTL PO STA (14:09)
[2022-11-27 14:29] VITALS: BP 107/64; PULSE 104; TEMP 102.7
== END 2022-11-27 14:35 | disposition home or self-care (01) ==
LOC: EC 11:34
DX: J10.1 Influenza due to other identified influenza virus with other respiratory manifestations (principal); F41.9 Anxiety disorder, unspecified; Z20.822 Contact with and (suspected) exposure to COVID-19
CPT/HCPCS: 87636; 71046; 99284; 96372 ×2; J1100; J1885; S0119

== ENCOUNTER 2025-01-16 16:42 | Emergency (ER) | payer OTHER ==
[2025-01-16 16:47] VITALS: TEMP 98
--- NOTE | 2025-01-16 16:57 | ED ---
Overdose HPI - General Chief Complaint: Overdose Stated Complaint: Overdose Time Seen by Provider: 01/16/25 16:49 Source: patient Mode of arrival: ambulatory Limitations: altered mental status - History of Present Illness Initial Comments: This patient is a 39-year-old woman with history of depression who is brought, to have evaluation, by the patient's mother. The patient was very somnolent and told her mother that she had taken 3 sleeping pills. Urine arrival, the patient is brought back to the room where she admits to taking more than 3 pills. She was not able to elaborate on what exactly she had taken or the exact number. This was approximately 1 to 2 hours ago. Patient does admit depression, but no thoughts of suicide. She denies pain or dyspnea. She has not had vomiting. History is somewhat limited as the patient is somnolent but she is able to answer direct questions. Onset/Timin -: hour(s) Intent: want to go to sleep Associated Symptoms: depression Treatments Prior to Arrival: none - Related Data Home Medications Medication Instructions Recorded Confirmed clonazePAM [KlonoPIN] 1 mg PO DAILY 02/08/22 01/16/25 Dextroamphetamine/Amphetamine 30 mg PO BID 01/16/25 01/16/25 [Adderall] Allergies Allergy/AdvReac Type Severity Reaction Status Date / Time No Known Allergies Allergy Verified 01/16/25 18:00 Review of Systems ROS Statement: Those systems with pertinent positive or pertinent negative responses have been documented in the HPI. ROS Other: All systems not noted in ROS Statement are negative. Limitations: ROS unobtainable due to patients medical condition Respiratory: Denies: dyspnea Cardiovascular: Denies: chest pain Neurological: Denies: headache Past Medical History Additional Past Medical History / Comment(s): kidney stones with stent, menorrhagia. History of Any Multi-Drug Resistant Organisms: None Reported Past Surgical History: Appendectomy, Section, Tonsillectomy, Tubal Ligation Additional Past Surgical History / Comment(s): ureter stent - been removed Past Anesthesia/Blood Transfusion Reactions: No Reported Reaction Past Psychological History: Anxiety Smoking Status: Never smoker Past Alcohol Use History: None Reported, Occasional Past Drug Use History: None Reported - Past Family History Mother Additional Family Medical History / Comment(s): hypotension, severe anxiety and severe depression, vertigo. CAD runs in mother's family Father Additional Family Medical History / Comment(s): "has a bad heart", back problems. CAD runs in father's family General Exam Limitations: no limitations General appearance: other (Somnolent but arouses to tactile stimuli.) Head exam: Present: atraumatic, normocephalic, normal inspection Eye exam: Present: normal appearance, PERRL, EOMI. Absent: scleral icterus, conjunctival injection, nystagmus, periorbital swelling, periorbital tenderness ENT exam: Present: normal oropharynx Neck exam: Present: normal inspection. Absent: tenderness Respiratory exam: Present: normal lung sounds bilaterally. Absent: respiratory distress, wheezes, rales, rhonchi, stridor, accessory muscle use Cardiovascular Exam: Present: regular rate, normal rhythm, normal heart sounds. Absent: systolic murmur, diastolic murmur, rubs, gallop GI/Abdominal exam: Present: soft. Absent: distended, tenderness, guarding, r ebound, rigid, mass Extremities exam: Present: normal inspection, normal capillary refill. Absent: pedal edema, calf tenderness Back exam: Present: normal inspection. Absent: CVA tenderness (R), CVA tenderness (L) Neurological exam: Present: altered, CN II-XII intact, reflexes normal. Absent: motor sensory deficit (Patient moves all 4 extremities to command.) Psychiatric exam: Present: depressed, suicidal ideation Skin exam: Present: warm, dry, intact, normal color. Absent: rash Course Vital Signs 01/16/25 01/16/25 01/16/25 16:44 17:09 17:51 Temperature 98.0 F Pulse Rate 99 92 Respiratory 8 L 12 20 Rate Blood Pressure 88/56 116/78 O2 Sat by Pulse 97 99 Oximetry 01/16/25 20:35 Temperature Pulse Rate 76 Respiratory 18 Rate Blood Pressure 110/74 O2 Sat by Pulse 97 Oximetry Medical Decision Making - Medical Decision Making Was pt. sent in by a medical professional or institution (, PA, ADULT AND PEDIATRIC NEUROLOGIST, urgent care, hospital, or skilled nursing...) When possible be specific @ -[No] Did you speak to anyone other than the patient for history (EMS, parent, family, police, friend...)? What history was obtained from this source @ -[No] Did you review nursing and triage notes (agree or disagree)? Why? @ -[I reviewed and agree with nursing and triage notes] Were old charts reviewed (outside hosp., previous admission, EMS record, old EKG, old radiological studies, urgent care reports/EKG's, skilled nursing records)? Report findings @ -[No old charts were reviewed] Differential Diagnosis (chest pain, altered mental status, abdominal pain women, abdominal pain men, vaginal bleeding, weakness, fever, dyspnea, syncope, headache, dizziness, GI bleed, back pain, seizure, CVA, palpatations, mental health, musculoskeletal)? @ -[Differential Mental Health Depression, anxiety, bipolar, psychosis, schizophrenia, borderline personality, situational depression, adjustment disorder, behavioral disorder, brain tumor, malingering, substance abuse, encephalopathy, medication reaction, dementia, hypothyroidism, degenerative neurologic disorder, lupus.... This is not meant to be all-inclusive list EKG interpreted by me (3pts min.). @ -[I interpreted as above] X-rays interpreted by me (1pt min.). @ -[None done] CT interpreted by me (1pt min.). @ -[None done] U/S interpreted by me (1pt. min.). @ -[None done] What testing was considered but not performed or refused? (CT, X-rays, U/S, labs)? Why? @ -[None] What meds were considered but not given or refused? Why? @ -[None] Did you discuss the management of the patient with other professionals (professionals i.e. , PA, ADULT AND PEDIATRIC NEUROLOGIST, lab, RT, psych nurse, social media assistant, academic support director, teacher, electronic intelligence officer, protective services case worker)? Give summary @ -[No] Was smoking cessation discussed for >3mins.? @ -[No] Was critical care preformed (if so, how long)? @ -[No] Were there social determinants of health that impacted care today? How? (Homelessness, low income, unemployed, alcoholism, drug addiction, transportation, low edu. Level, literacy, decrease access to med. care, prison, rehab)? @ -[No] Was there de-escalation of care discussed even if they declined (Discuss DNR or withdrawal of care, Hospice)? DNR status @ -[No] What co-morbidities impacted this encounter? (DM, HTN, Smoking, COPD, CAD, Cancer, CVA, ARF, Chemo, Hep., AIDS, mental health diagnosis, sleep apnea, morbid obesity)? @ -[None] Was patient admitted / discharged? Hospital course, mention meds given and route, prescriptions, significant lab abnormalities, going to OR and other pertinent info. @ -[Patient is a 39-year-old woman here to have evaluation as she is very somnolent after taking extra doses of her sleep medication. The patient does have some depression and we were going to have her seen by EPS but she subsequently requested to go home and follow-up as outpatient. She does have supportive family and she is denying active suicidal ideation. She does agree to return if she is feeling worse in any way. Undiagnosed new problem with uncertain prognosis? @ -[No] Drug Therapy requiring intensive monitoring for toxicity (Heparin, Nitro, Insulin, Cardizem)? @ -[No] Were any procedures done? @ -[No] Diagnosis/symptom? @ -[Acute overdose Mood disorder Acute, or Chronic, or Acute on Chronic? @ -[Acute Uncomplicated (without systemic symptoms) or Complicated (systemic symptoms)? @ -[default] Side effects of treatment? @ -[No] Exacerbation, Progression, or Severe Exacerbation? @ -[No] Poses a threat to life or bodily function? How? (Chest pain, [place], [place], pneumonia, PE, COPD, DKA, ARF, appy, cholecystitis, CVA, Diverticulitis, Homicidal, Suicidal, threat to staff... and all critical care pts) @ -[No] All treatments are based on ideal body weight as in ED triage - Lab Data Result diagrams: 01/16/25 17:00 01/16/25 17:00 Lab Results 01/16/25 01/16/25 01/16/25 Range/Units 17:00 17:00 17:00 WBC 6.3 (3.8-10.6) k/uL RBC 4.98 (3.80-5.40) m/uL Hgb 14.7 (11.4-16.0) gm/dL Hct 44.8 (34.0-46.0) % MCV 90.0 (80.0-100.0) fL MCH 29.6 (25.0-35.0) pg MCHC 32.9 (31.0-37.0) g/dL RDW 14.1 (11.5-15.5) % Plt Count 226 (150-450) k/uL MPV 6.4 Neutrophils % 81 % Lymphocytes % 12 % Monocytes % 4 % Eosinophils % 1 % Basophils % 1 % Neutrophils # 5.1 (1.3-7.7) k/uL Lymphocytes # 0.8 L (1.0-4.8) k/uL Monocytes # 0.2 (0-1.0) k/uL Eosinophils # 0.1 (0-0.7) k/uL Basophils # 0.0 (0-0.2) k/uL Sodium 136 L (137-145) mmol/L Potassium 4.2 (3.5-5.1) mmol/L Chloride 101 (98-107) mmol/L Carbon Dioxide 25 (22-30) mmol/L Anion Gap 10 mmol/L BUN 10 (7-17) mg/dL Creatinine 0.80 (0.52-1.04) mg/dL Est GFR (CKD-EPI)AfAm >90 (>60 ml/min/1.73 sqM) Est GFR (CKD-EPI)NonAf >90 (>60 ml/min/1.73 sqM) Glucose 104 H (74-99) mg/dL Plasma Lactic Acid Jacob 1.2 (0.7-2.0) mmol/L Calcium 9.3 (8.4-10.2) mg/dL Total Bilirubin 0.6 (0.2-1.3) mg/dL AST 39 H (14-36) U/L ALT 41 H (4-34) U/L Alkaline Phosphatase 73 (38-126) U/L Total Protein 7.9 (6.3-8.2) g/dL Albumin 4.5 (3.5-5.0) g/dL Urine HCG, Qual (Not Detectd) Salicylates <1.0 mg/dL Urine Opiates Screen (NotDetected) Ur Oxycodone Screen (NotDetected) Urine Methadone Screen (NotDetected) Acetaminophen <10.0 ug/mL Ur Barbiturates Screen (NotDetected) U Tricyclic Antidepress (NotDetected) Ur Phencyclidine Scrn (NotDetected) Ur Amphetamines Screen (NotDetected) U Methamphetamines Scrn (NotDetected) U Benzodiazepines Scrn (NotDetected) Urine Cocaine Screen (NotDetected) U Marijuana (THC) Screen (NotDetected) Serum Alcohol <10 mg/dL 01/16/25 01/16/25 Range/Units 17:12 17:12 WBC (3.8-10.6) k/uL RBC (3.80-5.40) m/uL Hgb (11.4-16.0) gm/dL Hct (34.0-46.0) % MCV (80.0-100.0) fL MCH (25.0-35.0) pg MCHC (31.0-37.0) g/dL RDW (11.5-15.5) % Plt Count (150-450) k/uL MPV Neutrophils % % Lymphocytes % % Monocytes % % Eosinophils % % Basophils % % Neutrophils # (1.3-7.7) k/uL Lymphocytes # (1.0-4.8) k/uL Monocytes # (0-1.0) k/uL Eosinophils # (0-0.7) k/uL Basophils # (0-0.2) k/uL Sodium (137-145) mmol/L Potassium (3.5-5.1) mmol/L Chloride (98-107) mmol/L Carbon Dioxide (22-30) mmol/L Anion Gap mmol/L BUN (7-17) mg/dL Creatinine (0.52-1.04) mg/dL Est GFR (CKD-EPI)AfAm (>60 ml/min/1.73 sqM) Est GFR (CKD-EPI)NonAf (>60 ml/min/1.73 sqM) Glucose (74-99) mg/dL Plasma Lactic Acid Jacob (0.7-2.0) mmol/L Calcium (8.4-10.2) mg/dL Total Bilirubin (0.2-1.3) mg/dL AST (14-36) U/L ALT (4-34) U/L Alkaline Phosphatase (38-126) U/L Total Protein (6.3-8.2) g/dL Albumin (3.5-5.0) g/dL Urine HCG, Qual Not Detected (Not Detectd) Salicylates mg/dL Urine Opiates Screen Not Detected (NotDetected) Ur Oxycodone Screen Not Detected (NotDetected) Urine Methadone Screen Not Detected (NotDetected) Acetaminophen ug/mL Ur Barbiturates Screen Not Detected (NotDetected) U Tricyclic Antidepress Detected H (NotDetected) Ur Phencyclidine Scrn Not Detected (NotDetected) Ur Amphetamines Screen Detected H (NotDetected) U Methamphetamines Scrn Not Detected (NotDetected) U Benzodiazepines Scrn Detected H (NotDetected) Urine Cocaine Screen Not Detected (NotDetected) U Marijuana (THC) Screen Not Detected (NotDetected) Serum Alcohol mg/dL - EKG Data -: EKG Interpreted by [facility] EKG shows normal: sinus rhythm, axis (Normal), intervals (Normal), QRS complexes (Normal), ST-T waves (Normal) Rate: normal (Rate 81 bpm) Interpretation: normal EKG Disposition Clinical Impression: Drug overdose, Mood disorder Disposition: LEFT AGAINST MEDICAL ADVICE Condition: Good Is patient prescribed a controlled substance at d/c from ED?: No Referrals: None,Stated [Primary Care Provider] - 1-2 days
[2025-01-16] MEDS: SODIUM CHLORIDE 0.9% 500 ML 500 ML IV STA (17:09)
[2025-01-16] MEDS: NALOXONE 0.4 MG/ML 1 ML VIAL IV STA ×2 (17:09→17:15)
[2025-01-16 17:22] LABS: Basophils % (A) 1 %; Eosinophils # (A) 0.1 k/uL (0-0.7); Eosinophils % (A) 1 %; HCT 44.8 % (34.0-46.0); HGB 14.7 gm/dL (11.4-16.0); Lymphocytes # (A) 0.8 k/uL (1.0-4.8); Lymphocytes % (A) 12 %; MCH 29.6 pg (25.0-35.0); MCHC 32.9 g/dL (31.0-37.0); Mean Platelet Volume 6.4; Monocytes # (A) 0.2 k/uL (0-1.0); Monocytes % (A) 4 %; Neutrophils # (A) 5.1 k/uL (1.3-7.7); Neutrophils % (A) 81 %; Platelet Count 226 k/uL (150-450); RBC 4.98 m/uL (3.80-5.40); RDW 14.1 % (11.5-15.5); WBC 6.3 k/uL (3.8-10.6)
[2025-01-16 17:31] LABS: ALT 41 U/L (4-34); AST 39 U/L (14-36); Acetaminophen <10.0 ug/mL; African American GFR (CKD) >90 (>60 ml/min/1.73 sqM); Albumin 4.5 g/dL (3.5-5.0); Alcohol <10 mg/dL; Alkaline Phosphatase 73 U/L (38-126); Anion Gap 10 mmol/L; Blood Urea Nitrogen 10 mg/dL (7-17); Calcium 9.3 mg/dL (8.4-10.2); Carbon Dioxide 25 mmol/L (22-30); Chloride 101 mmol/L (98-107); Glucose 104 mg/dL (74-99); Non-African American GFR(CKD) >90 (>60 ml/min/1.73 sqM); Potassium 4.2 mmol/L (3.5-5.1); Salicylate <1.0 mg/dL; Sodium 136 mmol/L (137-145); Total Bilirubin 0.6 mg/dL (0.2-1.3); Total Protein 7.9 g/dL (6.3-8.2)
--- NOTE | 2025-01-16 17:55 | XR ---
EXAMINATION TYPE: XR chest 1V portable DATE OF EXAM: 01/16/2025 5:45 PM COMPARISON: 11/27/2022 CLINICAL INDICATION: Female, 39 years old with history of overdose, TECHNIQUE: XR chest 1V portable view(s) obtained. FINDINGS: The heart size is normal. The pulmonary vasculature is normal. The lungs are clear. IMPRESSION: 1. No acute pulmonary process. [facility], , 01/16/2025 5:53 PM
[2025-01-16 18:40] LABS: Amphetamine Screen,Urine Detected (NotDetected); Barbiturate Screen,Urine Not Detected (NotDetected); Benzodiazepines Screen,Urine Detected (NotDetected); Cocaine Screen,Urine Not Detected (NotDetected); Methadone Screen, Urine Not Detected (NotDetected); Opiate Screen,Urine Not Detected (NotDetected); Oxycodone Screen, Urine Not Detected (NotDetected); Phencyclidine Screen,Urine Not Detected (NotDetected); Tricyclic Antidepressant,Urine Detected (NotDetected); Urn Cannabinoid Scrn Not Detected (NotDetected)
[2025-01-16 20:43] VITALS: BP 110/74; PULSE 76; RESP 18
== END 2025-01-17 00:10 | disposition left against medical advice (07) ==
LOC: EC 16:42
DX: F39 Unspecified mood [affective] disorder (principal); T65.91XA Toxic effect of unspecified substance, accidental (unintentional), initial encounter; Z53.29 Procedure and treatment not carried out because of patient's decision for other reasons
CPT/HCPCS: 36415; 93005; 80053; 83605; 85025; 81025; 80306; 80143; 80179; 71045; 99284; 96374; G0480; J2310; 80320